=== PATIENT | male | born 1985 | race African-American/Black ===

== ENCOUNTER 2017-10-04 18:04 | Inpatient (IN) ==
[2017-10-04 18:34] LABS: Basophils # 0.1 10*3/uL (0.0-0.2); Basophils % 0.6 % (0.0-0.8); Eosinophils # 0.2 10*3/uL (0.0-0.87); Eosinophils % 1.6 % (0.00-10.9); Hematocrit 32.4 VOL% (42.0-52.0); Hemoglobin 10.6 GM/DL (14.0-18.0); Immature Granulocytes % 0.4 %; Immature Granulocytes Absolute 0.04 #; Lymphocytes # 0.8 10*3/uL (1.4-4.0); Lymphocytes % 8.5 % (21.2-54.2); Mean Corpuscular HGB Conc 32.7 GM/DL (32-36); Mean Corpuscular Hemoglobin 32 PG (27-34); Mean Corpuscular Volume 98.5 FL (87-102); Mean Platelet Volume 11.7 FL (9.6-12.0); Monocytes # 0.7 10*3/uL (0.11-0.8); Monocytes % 7.4 % (1.7-12.7); Neutrophils # 7.8 10*3/uL (1.4-7.4); Neutrophils % 81.5 % (38.7-73.9); Platelet Count 195 T/CUMM (130-400); Red Blood Count 3.29 MC/CUMM (3.8-5.5); Red Cell Distribution Width 13.6 % (9.3-17.3); White Blood Count 9.6 T/CUMM (4-12)
[2017-10-04] MEDS ORDERED: FUROSEMIDE 40 MG/4 ML VIAL IV STA (18:46)
[2017-10-04] MEDS ORDERED: MORPHINE 2 MG/1 ML SYRINGE IV STA ×2 (18:46→20:52)
[2017-10-04] MEDS ORDERED: hydrALAZINE 20 MG/1 ML VIAL IV STA ×2 (18:47→20:07)
[2017-10-04 18:57] LABS: Alanine Aminotransferase 29 U/L (16-61); Albumin 3.6 G/DL (3.4-5.0); Alkaline Phosphatase 141 U/L (45-117); Aspartate Amino Transferase 41 U/L (0-37); Blood Urea Nitrogen 44 MG/DL (7-18); Calcium 7.9 MG/DL (8.5-10.1); Glucose 400 MG/DL (74-106); Osmolality,Calculated 287.8 MOS/KG (273-304); Potassium 4.4 MMOL/L (3.5-5.1); Sodium 130 MMOL/L (136-145); Total Protein 8.5 G/DL (6.4-8.3); Troponin I Only 0.021 NG/ML (0.00-0.045)
[2017-10-04 18:58] LABS: Lactic Acid 2.4 MMOL/L (0.4-2.0)
[2017-10-04] MEDS ORDERED: FUROSEMIDE 40 MG/4 ML VIAL ONE (19:04)
[2017-10-04] MEDS ORDERED: hydrALAZINE 20 MG/1 ML VIAL ONE ×2 (19:04→20:05)
[2017-10-04] MEDS ORDERED: MORPHINE 2 MG/1 ML SYRINGE ONE ×2 (19:04→20:53)
[2017-10-04] MEDS ORDERED: LORazepam 2 MG/1 ML VIAL ONE (19:25)
[2017-10-04] MEDS ORDERED: LABETALOL 20 MG/4 ML SYRINGE IV STA (20:51)
[2017-10-04] MEDS ORDERED: LABETALOL 20 MG/4 ML SYRINGE IV ONE (20:53)
[2017-10-04] MEDS ORDERED: ONDANSETRON 4 MG/2 ML VIAL IV PRN (21:12)
[2017-10-04] MEDS ORDERED: GLUCAGON 1 MG VIAL IM PRN (21:22)
[2017-10-04] MEDS ORDERED: DEXTROSE 50% 25 GM/50 ML VIAL IV PRN (21:22)
[2017-10-04] MEDS ORDERED: niCARdipine 25 MG/10 ML VIAL IV ONE (21:32)
[2017-10-04] MEDS: niCARdipine INJ 25 MG in SODIUM CHLORIDE 0.9% 240 ML IV SCH (21:55)
[2017-10-04] MEDS ORDERED: LACTULOSE 20 GM/30 ML UDCUP PO PRN (22:07)
[2017-10-04] MEDS ORDERED: LORazepam 2 MG/1 ML VIAL IV ONE (22:22)
[2017-10-04] MEDS ORDERED: INSULIN LISPRO 100 UNIT/ML SUBCUT ONE (22:23)
[2017-10-04] MEDS ORDERED: amLODIPine 5 MG TABLET PO SCH (22:30)
[2017-10-04] MEDS: CARVEDILOL 25 MG TABLET PO SCH (22:36)
[2017-10-04] MEDS: DIVALPROEX 250 MG TABLET PO SCH (22:36)
[2017-10-04] MEDS: MINOXIDIL 10 MG TABLET PO SCH (22:36)
[2017-10-05] MEDS: MORPHINE 2 MG/1 ML SYRINGE IV PRN ×4 (00:36→22:35)
[2017-10-05] MEDS: niCARdipine INJ 25 MG in SODIUM CHLORIDE 0.9% 240 ML IV SCH (02:31)
[2017-10-05 03:07] LABS: Basophils # 0.1 10*3/uL (0.0-0.2); Basophils % 0.4 % (0.0-0.8); Eosinophils % 0.3 % (0.00-10.9); Hematocrit 31.4 VOL% (42.0-52.0); Hemoglobin 10.2 GM/DL (14.0-18.0); Immature Granulocytes % 0.6 %; Immature Granulocytes Absolute 0.07 #; Lymphocytes # 0.6 10*3/uL (1.4-4.0); Mean Corpuscular HGB Conc 32.5 GM/DL (32-36); Mean Corpuscular Hemoglobin 32 PG (27-34); Mean Corpuscular Volume 98.7 FL (87-102); Mean Platelet Volume 11.5 FL (9.6-12.0); Monocytes # 0.9 10*3/uL (0.11-0.8); Monocytes % 6.8 % (1.7-12.7); Neutrophils # 10.9 10*3/uL (1.4-7.4); Neutrophils % 86.9 % (38.7-73.9); Platelet Count 212 T/CUMM (130-400); Red Blood Count 3.18 MC/CUMM (3.8-5.5); Red Cell Distribution Width 13.5 % (9.3-17.3); White Blood Count 12.6 T/CUMM (4-12)
[2017-10-05 05:42] LABS: Calcium 7.3 MG/DL (8.5-10.1); Osmolality,Calculated 287.2 MOS/KG (273-304); Potassium 3.9 MMOL/L (3.5-5.1); Risk Ratio 3.22; VLDL CHOLESTEROL 23.6 MG/DL
[2017-10-05] MEDS: INSULIN LISPRO 100 UNIT/ML SUBCUT SCH ×4 (08:15→21:00)
[2017-10-05] MEDS: PANTOPRAZOLE 40 MG TABLET PO SCH (08:16)
[2017-10-05] MEDS: CARVEDILOL 25 MG TABLET PO SCH (08:16)
[2017-10-05] MEDS: SEVELAMER CARBONATE 800 MG TABLET PO SCH ×3 (08:16→17:32)
[2017-10-05] MEDS: MULTIVITAMIN (BEROCCA) TABLET PO SCH (08:16)
[2017-10-05] MEDS: ASCORBIC ACID 500 MG TABLET PO SCH (08:16)
[2017-10-05] MEDS: INSULIN REGULAR 100 UNIT/ML SUBCUT SCH (08:16)
[2017-10-05] MEDS: DIVALPROEX 250 MG TABLET PO SCH ×2 (08:18→21:21)
[2017-10-05] MEDS: hydrOXYzine HCL 10 MG TABLET PO SCH ×3 (08:19→21:21)
[2017-10-05] MEDS: MINOXIDIL 10 MG TABLET PO SCH ×2 (08:36→21:22)
[2017-10-05] MEDS ORDERED: RENAL PO SCH (09:00)
[2017-10-05] MEDS ORDERED: ZINC PO SCH (09:00)
[2017-10-05] MEDS: POLYETHYLENE GLYCOL POWDER 17 GM PACK PO SCH ×2 (16:04→21:22)
[2017-10-05] MEDS: DOCUSATE SODIUM 100 MG CAPSULE PO SCH ×2 (16:04→21:21)
[2017-10-05] MEDS: CARVEDILOL 3.125 MG TABLET PO SCH ×2 (16:54→18:29)
[2017-10-05] MEDS: cefTRIAXone 2,000 MG in SYRINGE 1 EACH IV SCH (17:33)
[2017-10-05] MEDS ORDERED: OLMESARTAN 20 MG TABLET PO SCH (21:00)
[2017-10-05] MEDS: cloNIDine 0.1 MG TABLET PO SCH (21:21)
[2017-10-05] MEDS: INSULIN GLARGINE 100 UNIT/ML SUBCUT SCH (22:02)
[2017-10-06] MEDS: MORPHINE 2 MG/1 ML SYRINGE IV PRN ×3 (05:57→21:45)
[2017-10-06] MEDS: INSULIN REGULAR 100 UNIT/ML SUBCUT SCH (08:59)
[2017-10-06] MEDS: DIVALPROEX 250 MG TABLET PO SCH ×2 (09:00→21:45)
[2017-10-06] MEDS: SEVELAMER CARBONATE 800 MG TABLET PO SCH ×3 (09:00→17:05)
[2017-10-06] MEDS: POLYETHYLENE GLYCOL POWDER 17 GM PACK PO SCH ×2 (09:00→21:51)
[2017-10-06] MEDS: INSULIN LISPRO 100 UNIT/ML SUBCUT SCH ×4 (09:00→21:44)
[2017-10-06] MEDS: ASCORBIC ACID 500 MG TABLET PO SCH (09:01)
[2017-10-06] MEDS: cloNIDine 0.1 MG TABLET PO SCH (09:01)
[2017-10-06] MEDS: DOCUSATE SODIUM 100 MG CAPSULE PO SCH ×3 (09:01→21:51)
[2017-10-06] MEDS: MULTIVITAMIN (BEROCCA) TABLET PO SCH (09:01)
[2017-10-06] MEDS: CARVEDILOL 3.125 MG TABLET PO SCH ×2 (09:01→17:05)
[2017-10-06] MEDS: PANTOPRAZOLE 40 MG TABLET PO SCH (09:01)
[2017-10-06] MEDS: MINOXIDIL 10 MG TABLET PO SCH (09:01)
[2017-10-06] MEDS: hydrOXYzine HCL 10 MG TABLET PO SCH ×3 (09:01→21:45)
[2017-10-06 13:02] LABS: Cancer Antigen 19-9 156.7 U/ML (0-37); Carcinoembryonic Antigen 3.3 NG/ML (0.0-5.0); Prostate Specific Antigen Diag 0.4 NG/ML (0-4)
[2017-10-06] MEDS: cefTRIAXone 2,000 MG in SYRINGE 1 EACH IV SCH (17:05)
[2017-10-06] MEDS: INSULIN GLARGINE 100 UNIT/ML SUBCUT SCH (21:44)
[2017-10-07] MEDS: cloNIDine 0.1 MG TABLET PO SCH ×2 (01:02→08:26)
[2017-10-07] MEDS: MINOXIDIL 10 MG TABLET PO SCH ×2 (01:03→08:27)
[2017-10-07] MEDS: MORPHINE 2 MG/1 ML SYRINGE IV PRN ×4 (04:14→19:20)
[2017-10-07] MEDS: CARVEDILOL 3.125 MG TABLET PO SCH ×2 (08:26→17:51)
[2017-10-07] MEDS: INSULIN LISPRO 100 UNIT/ML SUBCUT SCH ×3 (08:26→16:07)
[2017-10-07] MEDS: POLYETHYLENE GLYCOL POWDER 17 GM PACK PO SCH (08:34)
[2017-10-07] MEDS: MULTIVITAMIN (BEROCCA) TABLET PO SCH (08:35)
[2017-10-07] MEDS: DOCUSATE SODIUM 100 MG CAPSULE PO SCH (08:35)
[2017-10-07] MEDS: hydrOXYzine HCL 10 MG TABLET PO SCH ×2 (08:35→15:10)
[2017-10-07] MEDS: INSULIN REGULAR 100 UNIT/ML SUBCUT SCH (08:35)
[2017-10-07] MEDS: PANTOPRAZOLE 40 MG TABLET PO SCH (08:35)
[2017-10-07] MEDS: ASCORBIC ACID 500 MG TABLET PO SCH (08:35)
[2017-10-07] MEDS: DIVALPROEX 250 MG TABLET PO SCH (08:35)
[2017-10-07] MEDS: SEVELAMER CARBONATE 800 MG TABLET PO SCH ×3 (08:35→17:51)
[2017-10-07] MEDS: cefTRIAXone 2,000 MG in SYRINGE 1 EACH IV SCH (17:51)
[2017-10-07 21:27] VITALS: BP 121/80
== END 2017-10-07 20:48 | disposition home or self-care (01) | DRG 194 ==
LOC: N.ED 18:04 → N.EDINP 21:09 → SUATTDRO 21:09 → N.CC 21:30 → N.5E 10-05 16:27
PROVIDERS: ADMIT Hospitalist

== ENCOUNTER 2017-10-19 04:07 | Observation (INO) ==
[2017-10-19] MEDS ORDERED: MORPHINE 2 MG/1 ML SYRINGE IV STA (04:52)
[2017-10-19] MEDS ORDERED: ONDANSETRON 4 MG/2 ML VIAL IV STA (04:52)
[2017-10-19] MEDS ORDERED: ONDANSETRON 4 MG/2 ML VIAL ONE (05:02)
[2017-10-19] MEDS ORDERED: MORPHINE 10 MG/1 ML VIAL ONE (05:03)
[2017-10-19 05:05] LABS: Basophils % 0.5 % (0.0-0.8); Eosinophils # 0.4 10*3/uL (0.0-0.87); Eosinophils % 4.6 % (0.00-10.9); Hematocrit 30.2 VOL% (42.0-52.0); Immature Granulocytes % 0.3 %; Immature Granulocytes Absolute 0.02 #; Lymphocytes # 1.1 10*3/uL (1.4-4.0); Lymphocytes % 14.7 % (21.2-54.2); Mean Corpuscular HGB Conc 33.1 GM/DL (32-36); Mean Corpuscular Hemoglobin 33 PG (27-34); Mean Corpuscular Volume 98.7 FL (87-102); Mean Platelet Volume 11.7 FL (9.6-12.0); Monocytes # 0.9 10*3/uL (0.11-0.8); Monocytes % 11.6 % (1.7-12.7); Neutrophils # 5.2 10*3/uL (1.4-7.4); Neutrophils % 68.3 % (38.7-73.9); Platelet Count 193 T/CUMM (130-400); Red Blood Count 3.06 MC/CUMM (3.8-5.5); Red Cell Distribution Width 14.6 % (9.3-17.3); White Blood Count 7.6 T/CUMM (4-12)
[2017-10-19 05:11] LABS: INR 1.1; PT Patient Result 11.2 SECS; Partial Thromboplastin Time 30.7 SECS (0-40)
[2017-10-19 05:34] LABS: Alanine Aminotransferase 26 U/L (16-61); Albumin 3.3 G/DL (3.4-5.0); Alkaline Phosphatase 108 U/L (45-117); Aspartate Amino Transferase 33 U/L (0-37); Blood Urea Nitrogen 65 MG/DL (7-18); Calcium 7.1 MG/DL (8.5-10.1); Glucose 99 MG/DL (74-106); Potassium 4.5 MMOL/L (3.5-5.1); Sodium 136 MMOL/L (136-145); Total Protein 7.4 G/DL (6.4-8.3); Troponin I Only 0.019 NG/ML (0.00-0.045)
[2017-10-19] MEDS ORDERED: METOPROLOL TARTRATE 5 MG/5 ML VIAL IV STA (05:41)
[2017-10-19] MEDS ORDERED: METOPROLOL TARTRATE 5 MG/5 ML VIAL IV ONE (05:44)
[2017-10-19] MEDS ORDERED: cloNIDine 0.1 MG TABLET PO STA (06:01)
[2017-10-19] MEDS ORDERED: cloNIDine 0.1 MG TABLET ONE (06:02)
[2017-10-19] MEDS ORDERED: ONDANSETRON 4 MG/2 ML VIAL IV PRN (06:06)
[2017-10-19] MEDS ORDERED: INSULIN REGULAR 100 UNIT/ML SUBCUT ONE (06:06)
[2017-10-19 08:01] LABS: Risk Ratio 2.45; VLDL CHOLESTEROL 9.8 MG/DL
[2017-10-19] MEDS: MORPHINE 2 MG/1 ML SYRINGE IV PRN ×2 (08:15→08:41)
[2017-10-19] MEDS: CARVEDILOL 25 MG TABLET PO SCH ×2 (08:42→20:29)
[2017-10-19] MEDS: VALSARTAN 160 MG TABLET PO SCH (08:43)
[2017-10-19] MEDS ORDERED: ZINC PO SCH (09:00)
[2017-10-19] MEDS ORDERED: RENAL PO SCH (09:00)
[2017-10-19] MEDS: MINOXIDIL 10 MG TABLET PO SCH ×2 (09:30→20:28)
[2017-10-19] MEDS: MULTIVITAMIN (BEROCCA) TABLET PO SCH (09:30)
[2017-10-19] MEDS: hydrALAZINE 20 MG/1 ML VIAL IV PRN ×2 (10:10→14:59)
[2017-10-19] MEDS: HEPARIN 5,000 UNIT/1 ML VIAL SUBCUT SCH ×3 (12:04→23:05)
[2017-10-19] MEDS: INSULIN REGULAR 100 UNIT/ML SUBCUT SCH ×3 (13:44→20:36)
[2017-10-19] MEDS: NITROGLYCERIN 2% OINT 1 INCH/GM PACK TOP SCH ×3 (13:45→23:07)
[2017-10-19] MEDS: SEVELAMER CARBONATE 800 MG TABLET PO SCH ×2 (14:55→20:28)
[2017-10-19] MEDS: DIVALPROEX 250 MG TABLET PO SCH ×2 (14:56→20:27)
[2017-10-19] MEDS: ASPIRIN EC 81 MG TABLET PO SCH (14:56)
[2017-10-19] MEDS ORDERED: amLODIPine 10 MG TABLET PO SCH (21:00)
[2017-10-20] MEDS ORDERED: diphenhydrAMINE CAP 25 MG CAPSULE PO PRN (00:28)
[2017-10-20] MEDS: NITROGLYCERIN 2% OINT 1 INCH/GM PACK TOP SCH ×3 (03:59→13:56)
[2017-10-20 05:26] LABS: Basophils # 0.1 10*3/uL (0.0-0.2); Basophils % 0.8 % (0.0-0.8); Eosinophils # 0.2 10*3/uL (0.0-0.87); Eosinophils % 3.3 % (0.00-10.9); Hematocrit 32.6 VOL% (42.0-52.0); Hemoglobin 10.5 GM/DL (14.0-18.0); Immature Granulocytes % 0.3 %; Immature Granulocytes Absolute 0.02 #; Lymphocytes # 0.9 10*3/uL (1.4-4.0); Lymphocytes % 13.9 % (21.2-54.2); Mean Corpuscular HGB Conc 32.2 GM/DL (32-36); Mean Corpuscular Hemoglobin 32 PG (27-34); Mean Corpuscular Volume 99.7 FL (87-102); Mean Platelet Volume 11.2 FL (9.6-12.0); Monocytes # 0.9 10*3/uL (0.11-0.8); Monocytes % 13.4 % (1.7-12.7); Neutrophils # 4.5 10*3/uL (1.4-7.4); Neutrophils % 68.3 % (38.7-73.9); Platelet Count 219 T/CUMM (130-400); Red Blood Count 3.27 MC/CUMM (3.8-5.5); Red Cell Distribution Width 14.8 % (9.3-17.3); White Blood Count 6.6 T/CUMM (4-12)
[2017-10-20 06:07] LABS: Calcium 7.5 MG/DL (8.5-10.1); Osmolality,Calculated 291.1 MOS/KG (273-304); Potassium 5.4 MMOL/L (3.5-5.1)
[2017-10-20] MEDS: HEPARIN 5,000 UNIT/1 ML VIAL SUBCUT SCH ×3 (06:27→21:29)
[2017-10-20] MEDS: INSULIN REGULAR 100 UNIT/ML SUBCUT SCH ×4 (07:55→21:22)
[2017-10-20] MEDS: VALSARTAN 160 MG TABLET PO SCH (08:00)
[2017-10-20] MEDS: DIVALPROEX 250 MG TABLET PO SCH ×2 (08:01→21:21)
[2017-10-20] MEDS: MULTIVITAMIN (BEROCCA) TABLET PO SCH (08:01)
[2017-10-20] MEDS: SEVELAMER CARBONATE 800 MG TABLET PO SCH ×2 (08:01→21:21)
[2017-10-20] MEDS: MINOXIDIL 10 MG TABLET PO SCH ×2 (08:01→21:22)
[2017-10-20] MEDS: CARVEDILOL 25 MG TABLET PO SCH ×2 (08:02→21:21)
[2017-10-20] MEDS: ASPIRIN EC 81 MG TABLET PO SCH (08:02)
[2017-10-20] MEDS: INSULIN GLARGINE 100 UNIT/ML SUBCUT SCH ×2 (14:05→21:20)
[2017-10-21] MEDS: MORPHINE 2 MG/1 ML SYRINGE IV PRN (01:25)
[2017-10-21 05:15] LABS: Basophils # 0.1 10*3/uL (0.0-0.2); Basophils % 0.9 % (0.0-0.8); Eosinophils # 0.2 10*3/uL (0.0-0.87); Eosinophils % 3.5 % (0.00-10.9); Hematocrit 33.2 VOL% (42.0-52.0); Hemoglobin 10.6 GM/DL (14.0-18.0); Immature Granulocytes % 0.4 %; Immature Granulocytes Absolute 0.02 #; Lymphocytes % 17.9 % (21.2-54.2); Mean Corpuscular HGB Conc 31.9 GM/DL (32-36); Mean Corpuscular Hemoglobin 32 PG (27-34); Mean Corpuscular Volume 99.7 FL (87-102); Mean Platelet Volume 11.4 FL (9.6-12.0); Monocytes # 0.9 10*3/uL (0.11-0.8); Monocytes % 16.4 % (1.7-12.7); Neutrophils # 3.3 10*3/uL (1.4-7.4); Neutrophils % 60.9 % (38.7-73.9); Platelet Count 249 T/CUMM (130-400); Red Blood Count 3.33 MC/CUMM (3.8-5.5); Red Cell Distribution Width 15.1 % (9.3-17.3); White Blood Count 5.4 T/CUMM (4-12)
[2017-10-21 05:43] LABS: Eosinophils 1 % (0-10); Giant Platelets Few; Hypochromasia 1+; Lymphocytes 15 % (20-55); Platelet Estimate Adequate; Segmented Neutrophils 72 % (50-85); Total Cells Counted 100
[2017-10-21 05:52] LABS: Calcium 7.8 MG/DL (8.5-10.1); Osmolality,Calculated 285.5 MOS/KG (273-304); Potassium 4.4 MMOL/L (3.5-5.1)
[2017-10-21] MEDS: HEPARIN 5,000 UNIT/1 ML VIAL SUBCUT SCH ×2 (06:09→14:45)
[2017-10-21] MEDS ORDERED: SEVELAMER CARBONATE 800 MG TABLET PO SCH (07:00)
[2017-10-21] MEDS: INSULIN REGULAR 100 UNIT/ML SUBCUT SCH ×2 (08:13→13:18)
[2017-10-21] MEDS: SEVELAMER CARBONATE 800 MG TABLET PO SCH ×2 (13:13→13:14)
[2017-10-21] MEDS: DIVALPROEX 250 MG TABLET PO SCH (13:14)
[2017-10-21] MEDS: VALSARTAN 160 MG TABLET PO SCH (13:15)
[2017-10-21] MEDS: MINOXIDIL 10 MG TABLET PO SCH (13:15)
[2017-10-21] MEDS: ASPIRIN EC 81 MG TABLET PO SCH (13:16)
[2017-10-21] MEDS: CARVEDILOL 25 MG TABLET PO SCH (13:16)
[2017-10-21] MEDS: INSULIN GLARGINE 100 UNIT/ML SUBCUT SCH (13:16)
[2017-10-21] MEDS: MULTIVITAMIN (BEROCCA) TABLET PO SCH (13:16)
[2017-10-21 13:23] VITALS: BP 126/75
== END 2017-10-21 14:58 | disposition home or self-care (01) ==
LOC: N.ED 04:07 → N.EDINP 04:07 → N.TELEN 06:24

== ENCOUNTER 2017-10-24 02:00 | Observation (INO) ==
[2017-10-24 02:56] LABS: Basophils # 0.1 10*3/uL (0.0-0.2); Basophils % 0.9 % (0.0-0.8); Eosinophils # 0.3 10*3/uL (0.0-0.87); Eosinophils % 4.5 % (0.00-10.9); Hematocrit 29.1 VOL% (42.0-52.0); Hemoglobin 9.7 GM/DL (14.0-18.0); Immature Granulocytes % 0.4 %; Immature Granulocytes Absolute 0.02 #; Lymphocytes % 18.1 % (21.2-54.2); Mean Corpuscular HGB Conc 33.3 GM/DL (32-36); Mean Corpuscular Hemoglobin 33 PG (27-34); Mean Corpuscular Volume 99.3 FL (87-102); Mean Platelet Volume 10.9 FL (9.6-12.0); Monocytes # 0.9 10*3/uL (0.11-0.8); Monocytes % 15.9 % (1.7-12.7); Neutrophils # 3.3 10*3/uL (1.4-7.4); Neutrophils % 60.2 % (38.7-73.9); Platelet Count 243 T/CUMM (130-400); Red Blood Count 2.93 MC/CUMM (3.8-5.5); Red Cell Distribution Width 15.4 % (9.3-17.3); White Blood Count 5.5 T/CUMM (4-12)
[2017-10-24 03:14] LABS: Alanine Aminotransferase 32 U/L (16-61); Albumin 3.2 G/DL (3.4-5.0); Alkaline Phosphatase 119 U/L (45-117); Aspartate Amino Transferase 36 U/L (0-37); Bilirubin,Total < 0.39 MG/DL (0.2-1.0); Blood Urea Nitrogen 33 MG/DL (7-18); Calcium 7.2 MG/DL (8.5-10.1); Glucose 361 MG/DL (74-106); Potassium 4.4 MMOL/L (3.5-5.1); Sodium 136 MMOL/L (136-145); Total Protein 7.5 G/DL (6.4-8.3)
[2017-10-24 04:29] LABS: Eosinophils 1 % (0-10); Lymphocytes 16 % (20-55); Platelet Estimate Normal; Segmented Neutrophils 74 % (50-85); Total Cells Counted 100
[2017-10-24] MEDS ORDERED: ONDANSETRON 4 MG/2 ML VIAL IV PRN (04:44)
[2017-10-24] MEDS ORDERED: DEXTROSE 50% 25 GM/50 ML VIAL IV PRN (04:54)
[2017-10-24] MEDS ORDERED: GLUCAGON 1 MG VIAL IM PRN (04:54)
[2017-10-24] MEDS ORDERED: SEVELAMER CARBONATE 800 MG TABLET PO SCH (06:30)
[2017-10-24] MEDS: INSULIN LISPRO 100 UNIT/ML SUBCUT SCH ×4 (08:11→20:52)
[2017-10-24] MEDS: ACETAMINOPHEN 325 MG TABLET PO PRN ×2 (08:12→21:46)
[2017-10-24] MEDS: DIVALPROEX 250 MG TABLET PO SCH ×2 (08:12→20:37)
[2017-10-24] MEDS: CARVEDILOL 25 MG TABLET PO SCH ×2 (08:14→20:41)
[2017-10-24] MEDS: PANTOPRAZOLE 40 MG TABLET PO SCH (08:14)
[2017-10-24] MEDS ORDERED: MINOXIDIL PO SCH (09:00)
[2017-10-24] MEDS: IBUPROFEN 600 MG TABLET PO SCH ×2 (13:24→20:37)
[2017-10-24] MEDS ORDERED: cloNIDine 0.1 MG TABLET PO PRN (14:22)
[2017-10-24] MEDS: hydrALAZINE 25 MG TABLET PO SCH ×2 (16:07→20:41)
[2017-10-24] MEDS ORDERED: INSULIN GLARGINE 100 UNIT/ML SUBCUT SCH (21:00)
[2017-10-25] MEDS: ACETAMINOPHEN 325 MG TABLET PO PRN (02:16)
[2017-10-25 04:11] LABS: Basophils # 0.1 10*3/uL (0.0-0.2); Basophils % 0.9 % (0.0-0.8); Eosinophils # 0.4 10*3/uL (0.0-0.87); Eosinophils % 6.1 % (0.00-10.9); Hemoglobin 9.8 GM/DL (14.0-18.0); Immature Granulocytes % 0.2 %; Immature Granulocytes Absolute 0.01 #; Lymphocytes # 1.6 10*3/uL (1.4-4.0); Lymphocytes % 28.5 % (21.2-54.2); Mean Corpuscular HGB Conc 32.7 GM/DL (32-36); Mean Corpuscular Hemoglobin 33 PG (27-34); Mean Corpuscular Volume 100.3 FL (87-102); Mean Platelet Volume 11.1 FL (9.6-12.0); Monocytes # 0.8 10*3/uL (0.11-0.8); Monocytes % 13.7 % (1.7-12.7); Neutrophils # 2.9 10*3/uL (1.4-7.4); Neutrophils % 50.6 % (38.7-73.9); Platelet Count 231 T/CUMM (130-400); Red Blood Count 2.99 MC/CUMM (3.8-5.5); Red Cell Distribution Width 15.5 % (9.3-17.3); White Blood Count 5.8 T/CUMM (4-12)
[2017-10-25 04:31] LABS: Osmolality,Calculated 279.5 MOS/KG (273-304); Potassium 5.2 MMOL/L (3.5-5.1)
[2017-10-25] MEDS: IBUPROFEN 600 MG TABLET PO SCH (05:41)
[2017-10-25 06:31] LABS: Potassium 5.3 MMOL/L (3.5-5.1); Troponin I Only 0.02 NG/ML (0.00-0.045)
[2017-10-25] MEDS: DIVALPROEX 250 MG TABLET PO SCH (09:23)
[2017-10-25] MEDS: CARVEDILOL 25 MG TABLET PO SCH (09:24)
[2017-10-25] MEDS: PANTOPRAZOLE 40 MG TABLET PO SCH (09:24)
[2017-10-25] MEDS: hydrALAZINE 25 MG TABLET PO SCH (09:25)
[2017-10-25] MEDS: INSULIN LISPRO 100 UNIT/ML SUBCUT SCH ×2 (09:26→11:49)
[2017-10-25 11:35] VITALS: BP 111/75
[2017-10-25] MEDS ORDERED: IBUPROFEN 400 MG TABLET PO SCH (21:00)
[2017-10-27] MEDS ORDERED: IBUPROFEN 200 MG TABLET PO SCH (07:00)
== END 2017-10-25 13:20 | disposition home or self-care (01) ==
LOC: EDUNIT# → EDBD → N.ED 02:00 → N.EDINP 02:00 → N.2E 05:08
PROVIDERS: ADMIT Hospitalist; ATTEND Hospitalist

== ENCOUNTER 2018-01-31 16:54 | Inpatient (IN) ==
[2018-01-31] MEDS ORDERED: hydrALAZINE 20 MG/1 ML VIAL ONE (17:20)
[2018-01-31] MEDS ORDERED: hydrALAZINE 20 MG/1 ML VIAL IV STA ×2 (17:21→17:39)
[2018-01-31] MEDS ORDERED: LABETALOL 20 MG/4 ML SYRINGE IV STA ×4 (17:39→19:30)
[2018-01-31] MEDS ORDERED: diphenhydrAMINE 50 MG/1 ML VIAL IV STA (17:40)
[2018-01-31] MEDS ORDERED: METOCLOPRAMIDE 10 MG/2 ML VIAL IV STA (17:40)
[2018-01-31] MEDS ORDERED: MORPHINE 4 MG/1 ML VIAL IV STA ×2 (18:12→18:56)
[2018-01-31] MEDS ORDERED: LABETALOL 100 MG/20 ML VIAL IV ONE ×2 (18:16→19:42)
[2018-01-31 20:08] LABS: Basophils # 0.1 10*3/uL (0.0-0.2); Basophils % 0.6 % (0.0-0.8); Eosinophils # 0.1 10*3/uL (0.0-0.87); Eosinophils % 0.8 % (0.00-10.9); Hematocrit 35.1 VOL% (42.0-52.0); Hemoglobin 11.6 GM/DL (14.0-18.0); Immature Granulocytes % 0.4 %; Immature Granulocytes Absolute 0.03 #; Lymphocytes # 0.9 10*3/uL (1.4-4.0); Lymphocytes % 10.2 % (21.2-54.2); Mean Corpuscular Hemoglobin 30 PG (27-34); Mean Corpuscular Volume 90.2 FL (87-102); Monocytes # 0.5 10*3/uL (0.11-0.8); Monocytes % 5.5 % (1.7-12.7); Neutrophils % 82.5 % (38.7-73.9); Platelet Count 168 T/CUMM (130-400); Red Blood Count 3.89 MC/CUMM (3.8-5.5); Red Cell Distribution Width 13.8 % (9.3-17.3); White Blood Count 8.5 T/CUMM (4-12)
[2018-01-31 20:27] LABS: Alanine Aminotransferase 20 U/L (16-61); Albumin 4.2 G/DL (3.4-5.0); Alkaline Phosphatase 123 U/L (45-117); Aspartate Amino Transferase 17 U/L (0-37); Bilirubin,Total < 0.39 MG/DL (0.2-1.0); Blood Urea Nitrogen 40 MG/DL (7-18); Calcium 8.8 MG/DL (8.5-10.1); Glucose 372 MG/DL (74-106); Osmolality,Calculated 282.9 MOS/KG (273-304); Sodium 129 MMOL/L (136-145); Total Protein 8.1 G/DL (6.4-8.3)
[2018-01-31] MEDS ORDERED: niCARdipine 25 MG/10 ML VIAL IV ONE (20:33)
[2018-01-31] MEDS: niCARdipine INJ 25 MG in SODIUM CHLORIDE 0.9% 240 ML IV PRN (20:42)
[2018-01-31] MEDS ORDERED: ONDANSETRON 4 MG/2 ML VIAL ONE (23:21)
[2018-02-01] MEDS ORDERED: DEXTROSE 50% 25 GM/50 ML VIAL IV PRN (00:28)
[2018-02-01] MEDS ORDERED: ACETAMINOPHEN 325 MG TABLET PO PRN (00:28)
[2018-02-01] MEDS ORDERED: ALBUTEROL/IPRATROPIUM 3 ML NEB RESP TX PRN ×2 (00:28→10:22)
[2018-02-01] MEDS ORDERED: GLUCAGON 1 MG VIAL IM PRN (00:28)
[2018-02-01] MEDS ORDERED: NICOTINE 14 MG/24 HR PATCH TRANSDERM PRN (00:28)
[2018-02-01] MEDS ORDERED: ONDANSETRON 4 MG/2 ML VIAL IV PRN (00:28)
[2018-02-01] MEDS ORDERED: PROMETHAZINE 25 MG TABLET PO PRN (00:28)
[2018-02-01] MEDS: CARVEDILOL 25 MG TABLET PO SCH ×3 (01:10→21:43)
[2018-02-01] MEDS: cefTRIAXone 1,000 MG in SYRINGE 1 EACH IV SCH ×2 (01:21→16:23)
[2018-02-01] MEDS ORDERED: MORPHINE 4 MG/1 ML VIAL IV ONE (01:30)
[2018-02-01] MEDS: ALBUTEROL/IPRATROPIUM 3 ML NEB RESP TX SCH ×4 (01:43→18:58)
[2018-02-01] MEDS: MORPHINE 4 MG/1 ML VIAL IV PRN ×3 (01:53→21:49)
[2018-02-01] MEDS: AZITHROMYCIN INJ 500 MG in SODIUM CHLORIDE 0.9% 250 ML IV SCH (05:02)
[2018-02-01] MEDS: niCARdipine INJ 25 MG in SODIUM CHLORIDE 0.9% 240 ML IV PRN ×3 (08:02→23:22)
[2018-02-01] MEDS: INSULIN REGULAR 100 UNIT/ML SUBCUT SCH ×5 (08:10→21:43)
[2018-02-01] MEDS ORDERED: ENOXAPARIN 30 MG/0.3 ML SYRINGE SUBCUT SCH (09:00)
[2018-02-01] MEDS ORDERED: ZINC PO SCH (09:00)
[2018-02-01] MEDS ORDERED: RENAL PO SCH (09:00)
[2018-02-01] MEDS ORDERED: SEVELAMER CARBONATE 800 MG TABLET PO SCH (15:00)
[2018-02-01] MEDS: PANTOPRAZOLE 40 MG TABLET PO SCH (16:14)
[2018-02-01] MEDS: SEVELAMER CARBONATE 800 MG TABLET PO SCH ×2 (16:14→16:16)
[2018-02-01] MEDS: VALSARTAN 160 MG TABLET PO SCH (16:16)
[2018-02-01] MEDS: amLODIPine 10 MG TABLET PO SCH (16:17)
[2018-02-01] MEDS: DOCUSATE SODIUM 100 MG CAPSULE PO SCH ×2 (16:20→21:43)
[2018-02-01] MEDS: MULTIVITAMIN (BEROCCA) TABLET PO SCH (16:21)
[2018-02-01] MEDS: INSULIN GLARGINE 100 UNIT/ML SUBCUT SCH (21:43)
[2018-02-02] MEDS: ALBUTEROL/IPRATROPIUM 3 ML NEB RESP TX SCH ×4 (00:32→19:26)
[2018-02-02] MEDS: cefTRIAXone 1,000 MG in SYRINGE 1 EACH IV SCH ×2 (01:44→15:00)
[2018-02-02] MEDS: AZITHROMYCIN INJ 500 MG in SODIUM CHLORIDE 0.9% 250 ML IV SCH (01:44)
[2018-02-02] MEDS: MORPHINE 4 MG/1 ML VIAL IV PRN ×4 (02:55→22:10)
[2018-02-02] MEDS: VALSARTAN 160 MG TABLET PO SCH (10:20)
[2018-02-02] MEDS: SEVELAMER CARBONATE 800 MG TABLET PO SCH ×3 (10:21→19:22)
[2018-02-02] MEDS: amLODIPine 10 MG TABLET PO SCH (10:23)
[2018-02-02] MEDS: DOCUSATE SODIUM 100 MG CAPSULE PO SCH ×2 (10:24→20:13)
[2018-02-02] MEDS: CARVEDILOL 25 MG TABLET PO SCH ×2 (10:24→20:13)
[2018-02-02] MEDS: PANTOPRAZOLE 40 MG TABLET PO SCH (10:24)
[2018-02-02] MEDS: MULTIVITAMIN (BEROCCA) TABLET PO SCH (10:27)
[2018-02-02] MEDS: INSULIN REGULAR 100 UNIT/ML SUBCUT SCH ×5 (10:33→21:50)
[2018-02-02] MEDS: levETIRAcetam 500 MG TABLET PO SCH (20:14)
[2018-02-02] MEDS: INSULIN GLARGINE 100 UNIT/ML SUBCUT SCH (21:50)
[2018-02-03] MEDS: ALBUTEROL/IPRATROPIUM 3 ML NEB RESP TX SCH ×4 (00:59→21:02)
[2018-02-03] MEDS: cefTRIAXone 1,000 MG in SYRINGE 1 EACH IV SCH ×2 (02:15→13:15)
[2018-02-03] MEDS: AZITHROMYCIN INJ 500 MG in SODIUM CHLORIDE 0.9% 250 ML IV SCH (02:25)
[2018-02-03] MEDS ORDERED: DIAZEPAM 5 MG TABLET PO SCH (08:57)
[2018-02-03] MEDS: VALSARTAN 160 MG TABLET PO SCH (09:29)
[2018-02-03] MEDS: amLODIPine 10 MG TABLET PO SCH (09:29)
[2018-02-03] MEDS: DOCUSATE SODIUM 100 MG CAPSULE PO SCH ×2 (09:29→21:32)
[2018-02-03] MEDS: levETIRAcetam 500 MG TABLET PO SCH ×2 (09:30→21:32)
[2018-02-03] MEDS: CARVEDILOL 25 MG TABLET PO SCH ×2 (09:30→21:32)
[2018-02-03] MEDS: PANTOPRAZOLE 40 MG TABLET PO SCH (09:30)
[2018-02-03] MEDS: MULTIVITAMIN (BEROCCA) TABLET PO SCH (09:30)
[2018-02-03] MEDS: SEVELAMER CARBONATE 800 MG TABLET PO SCH ×3 (09:32→16:30)
[2018-02-03] MEDS: INSULIN REGULAR 100 UNIT/ML SUBCUT SCH ×5 (09:34→21:32)
[2018-02-03] MEDS: INSULIN GLARGINE 100 UNIT/ML SUBCUT SCH (22:00)
[2018-02-04] MEDS: MORPHINE 4 MG/1 ML VIAL IV PRN ×2 (00:16→09:16)
[2018-02-04] MEDS: ALBUTEROL/IPRATROPIUM 3 ML NEB RESP TX SCH ×3 (00:59→12:22)
[2018-02-04] MEDS: cefTRIAXone 1,000 MG in SYRINGE 1 EACH IV SCH ×2 (01:32→13:16)
[2018-02-04] MEDS: AZITHROMYCIN INJ 500 MG in SODIUM CHLORIDE 0.9% 250 ML IV SCH (02:29)
[2018-02-04] MEDS: INSULIN REGULAR 100 UNIT/ML SUBCUT SCH ×3 (09:17→12:46)
[2018-02-04] MEDS: amLODIPine 10 MG TABLET PO SCH (09:18)
[2018-02-04] MEDS: CARVEDILOL 25 MG TABLET PO SCH (09:18)
[2018-02-04] MEDS: MULTIVITAMIN (BEROCCA) TABLET PO SCH (09:18)
[2018-02-04] MEDS: VALSARTAN 160 MG TABLET PO SCH (09:18)
[2018-02-04] MEDS: DOCUSATE SODIUM 100 MG CAPSULE PO SCH (09:18)
[2018-02-04] MEDS: SEVELAMER CARBONATE 800 MG TABLET PO SCH ×2 (09:18→13:16)
[2018-02-04] MEDS: PANTOPRAZOLE 40 MG TABLET PO SCH (09:27)
[2018-02-04] MEDS: levETIRAcetam 500 MG TABLET PO SCH (09:32)
[2018-02-04 11:57] VITALS: BP 146/93
== END 2018-02-04 14:06 | disposition home or self-care (01) | DRG 44 ==
LOC: EDUNIT# → N.ED 16:54 → N.EDINP 20:37 → SUATTDRO 20:37 → N.TELES 22:55
PROVIDERS: ADMIT Family Medicine; ATTEND Internal Medicine Geriatric Medicine

== ENCOUNTER 2018-04-01 12:00 | Inpatient (IN) ==
[2018-04-01 13:30] LABS: Basophils # 0.1 10*3/uL (0.0-0.2); Basophils % 1.1 % (0.0-0.8); Eosinophils # 0.1 10*3/uL (0.0-0.87); Eosinophils % 2.1 % (0.00-10.9); Hematocrit 30.4 VOL% (42.0-52.0); Hemoglobin 9.9 GM/DL (14.0-18.0); Immature Granulocytes % 0.4 %; Immature Granulocytes Absolute 0.02 #; Lymphocytes # 1.1 10*3/uL (1.4-4.0); Mean Corpuscular HGB Conc 32.6 GM/DL (32-36); Mean Corpuscular Hemoglobin 30 PG (27-34); Mean Corpuscular Volume 92.4 FL (87-102); Mean Platelet Volume 11.2 FL (9.6-12.0); Monocytes # 0.4 10*3/uL (0.11-0.8); Monocytes % 8.3 % (1.7-12.7); Neutrophils % 64.1 % (38.7-73.9); Platelet Count 233 T/CUMM (130-400); Red Blood Count 3.29 MC/CUMM (3.8-5.5); Red Cell Distribution Width 14.9 % (9.3-17.3); White Blood Count 4.7 T/CUMM (4-12)
[2018-04-01 13:45] LABS: PT Patient Result 10.5 SECS; Partial Thromboplastin Time 32.9 SECS (0-40)
[2018-04-01 14:21] LABS: Albumin 3.6 G/DL (3.4-5.0); Bilirubin,Total 0.4 MG/DL (0.2-1.0); Calcium 8.7 MG/DL (8.5-10.1); Osmolality,Calculated 281.1 MOS/KG (273-304); Potassium 4.1 MMOL/L (3.5-5.1); Total Protein 7.6 G/DL (6.4-8.3)
[2018-04-01 19:04] LABS: Troponin I < 0.015 NG/ML (0.00-0.045)
[2018-04-01 23:35] LABS: Troponin I < 0.015 NG/ML (0.00-0.045)
[2018-04-02 04:25] LABS: Basophils % 0.5 % (0.0-0.8); Eosinophils # 0.1 10*3/uL (0.0-0.87); Eosinophils % 1.6 % (0.00-10.9); Hematocrit 28.1 VOL% (42.0-52.0); Hemoglobin 9.3 GM/DL (14.0-18.0); Immature Granulocytes % 0.2 %; Immature Granulocytes Absolute 0.01 #; Lymphocytes # 1.4 10*3/uL (1.4-4.0); Mean Corpuscular HGB Conc 33.1 GM/DL (32-36); Mean Corpuscular Hemoglobin 30 PG (27-34); Mean Corpuscular Volume 90.9 FL (87-102); Mean Platelet Volume 11.9 FL (9.6-12.0); Monocytes # 0.4 10*3/uL (0.11-0.8); Monocytes % 6.7 % (1.7-12.7); Neutrophils # 3.6 10*3/uL (1.4-7.4); Platelet Count 238 T/CUMM (130-400); Red Blood Count 3.09 MC/CUMM (3.8-5.5); Red Cell Distribution Width 15.1 % (9.3-17.3); White Blood Count 5.5 T/CUMM (4-12)
[2018-04-02 05:03] LABS: Albumin 3.3 G/DL (3.4-5.0); Bilirubin,Total 0.4 MG/DL (0.2-1.0); Calcium 8.5 MG/DL (8.5-10.1); Osmolality,Calculated 281.8 MOS/KG (273-304); Potassium 4.1 MMOL/L (3.5-5.1); Total Protein 7.5 G/DL (6.4-8.3)
[2018-04-02 05:05] LABS: Risk Ratio 2.2; VLDL CHOLESTEROL 16.4 MG/DL
[2018-04-03 04:38] LABS: Basophils # 0.1 10*3/uL (0.0-0.2); Eosinophils # 0.1 10*3/uL (0.0-0.87); Eosinophils % 1.9 % (0.00-10.9); Hematocrit 27.2 VOL% (42.0-52.0); Hemoglobin 8.7 GM/DL (14.0-18.0); Immature Granulocytes % 0.4 %; Immature Granulocytes Absolute 0.02 #; Lymphocytes # 0.6 10*3/uL (1.4-4.0); Lymphocytes % 13.2 % (21.2-54.2); Mean Corpuscular Hemoglobin 30 PG (27-34); Mean Corpuscular Volume 92.5 FL (87-102); Mean Platelet Volume 12.4 FL (9.6-12.0); Monocytes # 0.3 10*3/uL (0.11-0.8); Monocytes % 6.4 % (1.7-12.7); NRBC # 0.02 10*3/uL; Neutrophils # 3.7 10*3/uL (1.4-7.4); Neutrophils % 77.1 % (38.7-73.9); Platelet Count 226 T/CUMM (130-400); Red Blood Count 2.94 MC/CUMM (3.8-5.5); Red Cell Distribution Width 15.5 % (9.3-17.3); White Blood Count 4.9 T/CUMM (4-12)
[2018-04-03 04:56] LABS: Albumin 2.8 G/DL (3.4-5.0); Bilirubin,Total 0.6 MG/DL (0.2-1.0); Calcium 8.2 MG/DL (8.5-10.1); Potassium 5.1 MMOL/L (3.5-5.1); Total Protein 6.6 G/DL (6.4-8.3)
[2018-04-04 04:14] LABS: Basophils % 1.1 % (0.0-0.8); Eosinophils # 0.1 10*3/uL (0.0-0.87); Eosinophils % 1.9 % (0.00-10.9); Hematocrit 24.8 VOL% (42.0-52.0); Hemoglobin 7.7 GM/DL (14.0-18.0); Immature Granulocytes % 0.5 %; Immature Granulocytes Absolute 0.02 #; Lymphocytes % 25.5 % (21.2-54.2); Mean Corpuscular Hemoglobin 29 PG (27-34); Mean Corpuscular Volume 94.3 FL (87-102); Mean Platelet Volume 11.9 FL (9.6-12.0); Monocytes # 0.4 10*3/uL (0.11-0.8); Monocytes % 10.9 % (1.7-12.7); Neutrophils # 2.3 10*3/uL (1.4-7.4); Neutrophils % 60.1 % (38.7-73.9); Platelet Count 205 T/CUMM (130-400); Red Blood Count 2.63 MC/CUMM (3.8-5.5); Red Cell Distribution Width 15.4 % (9.3-17.3); White Blood Count 3.8 T/CUMM (4-12)
[2018-04-04 04:43] LABS: Albumin 2.8 G/DL (3.4-5.0); Bilirubin,Total 0.6 MG/DL (0.2-1.0); Calcium 8.3 MG/DL (8.5-10.1); Osmolality,Calculated 277.4 MOS/KG (273-304); Total Protein 6.3 G/DL (6.4-8.3)
[2018-04-04 05:38] LABS: Potassium 6.4 MMOL/L (3.5-5.1)
[2018-04-05 09:06] LABS: Basophils % 0.8 % (0.0-0.8); Eosinophils # 0.1 10*3/uL (0.0-0.87); Eosinophils % 1.9 % (0.00-10.9); Hematocrit 26.9 VOL% (42.0-52.0); Hemoglobin 8.7 GM/DL (14.0-18.0); Immature Granulocytes % 0.2 %; Immature Granulocytes Absolute 0.01 #; Lymphocytes # 0.8 10*3/uL (1.4-4.0); Lymphocytes % 16.2 % (21.2-54.2); Mean Corpuscular HGB Conc 32.3 GM/DL (32-36); Mean Corpuscular Hemoglobin 30 PG (27-34); Mean Corpuscular Volume 93.4 FL (87-102); Mean Platelet Volume 11.6 FL (9.6-12.0); Monocytes # 0.3 10*3/uL (0.11-0.8); Monocytes % 5.8 % (1.7-12.7); Neutrophils # 3.9 10*3/uL (1.4-7.4); Neutrophils % 75.1 % (38.7-73.9); Platelet Count 218 T/CUMM (130-400); Red Blood Count 2.88 MC/CUMM (3.8-5.5); Red Cell Distribution Width 15.4 % (9.3-17.3); White Blood Count 5.1 T/CUMM (4-12)
[2018-04-05 09:13] LABS: Calcium 8.5 MG/DL (8.5-10.1); Osmolality,Calculated 282.5 MOS/KG (273-304); Potassium 5.8 MMOL/L (3.5-5.1)
[2018-04-05 09:17] LABS: Calcium 8.3 MG/DL (8.5-10.1); Osmolality,Calculated 277.8 MOS/KG (273-304); Potassium 5.8 MMOL/L (3.5-5.1)
[2018-04-06 04:19] LABS: Calcium 8.5 MG/DL (8.5-10.1); Osmolality,Calculated 281.8 MOS/KG (273-304); Potassium 4.7 MMOL/L (3.5-5.1)
[2018-04-06 11:58] VITALS: BP 168/90
== END 2018-04-06 15:32 | disposition home health service (06) | DRG 175 ==
LOC: EDBD → EDUNIT# → N.ED 12:00 → SUATTDRO 15:01 → N.EDINP 15:01 → N.2W 16:17 → N.TELES 19:12
PROVIDERS: ADMIT Internal Medicine; ATTEND Internal Medicine
PROC: CLCCHCL (ICD-10-PCS; 2018-04-02 13:15)

== ENCOUNTER 2018-04-07 20:29 | Observation (INO) ==
[2018-04-07] MEDS ORDERED: ONDANSETRON 4 MG/2 ML VIAL IV STA (20:53)
[2018-04-07] MEDS ORDERED: NITROGLYCERIN 2% OINT 1 INCH/GM PACK TOP STA (20:53)
[2018-04-07] MEDS ORDERED: hydrALAZINE 20 MG/1 ML VIAL IV STA (20:55)
[2018-04-07 21:14] LABS: Basophils % 0.7 % (0.0-0.8); Eosinophils # 0.1 10*3/uL (0.0-0.87); Eosinophils % 1.4 % (0.00-10.9); Hematocrit 27.6 VOL% (42.0-52.0); Hemoglobin 8.9 GM/DL (14.0-18.0); Lymphocytes # 0.7 10*3/uL (1.4-4.0); Lymphocytes % 16.3 % (21.2-54.2); Mean Corpuscular HGB Conc 32.2 GM/DL (32-36); Mean Corpuscular Hemoglobin 30 PG (27-34); Mean Corpuscular Volume 91.7 FL (87-102); Mean Platelet Volume 10.9 FL (9.6-12.0); Monocytes # 0.5 10*3/uL (0.11-0.8); Monocytes % 11.3 % (1.7-12.7); Neutrophils % 70.3 % (38.7-73.9); Platelet Count 181 T/CUMM (130-400); Red Blood Count 3.01 MC/CUMM (3.8-5.5); Red Cell Distribution Width 14.9 % (9.3-17.3); White Blood Count 4.2 T/CUMM (4-12)
[2018-04-07 21:27] LABS: PT Patient Result 10.3 SECS; Partial Thromboplastin Time 29.8 SECS (0-40)
[2018-04-07] MEDS ORDERED: MEPERIDINE 50 MG/1 ML VIAL IV STA (21:27)
[2018-04-07] MEDS ORDERED: MEPERIDINE 25 MG/1 ML VIAL IV STA (21:32)
[2018-04-07 21:39] LABS: Alanine Aminotransferase 30 U/L (16-61); Albumin 3.3 G/DL (3.4-5.0); Alkaline Phosphatase 148 U/L (45-117); Aspartate Amino Transferase 22 U/L (0-37); Blood Urea Nitrogen 24 MG/DL (7-18); Calcium 8.4 MG/DL (8.5-10.1); Glucose 234 MG/DL (74-106); Osmolality,Calculated 284.8 MOS/KG (273-304); Potassium 3.7 MMOL/L (3.5-5.1); Sodium 137 MMOL/L (136-145); Total Protein 7.4 G/DL (6.4-8.3); Troponin I 0.016 NG/ML (0.00-0.045)
[2018-04-07] MEDS ORDERED: METOPROLOL TARTRATE 5 MG/5 ML VIAL IV STA (22:35)
[2018-04-07] MEDS ORDERED: cloNIDine 0.1 MG TABLET PO STA (23:40)
[2018-04-08] MEDS ORDERED: ONDANSETRON 4 MG/2 ML VIAL IV PRN (00:43)
[2018-04-08] MEDS ORDERED: DEXTROSE 50% 25 GM/50 ML VIAL IV PRN (00:43)
[2018-04-08] MEDS ORDERED: cloNIDine 0.1 MG TABLET PO PRN (00:43)
[2018-04-08] MEDS ORDERED: GLUCAGON 1 MG VIAL IM PRN (00:43)
[2018-04-08] MEDS ORDERED: SEVELAMER CARBONATE 800 MG TABLET PO PRN (00:43)
[2018-04-08] MEDS ORDERED: ACETAMINOPHEN 325 MG TABLET PO PRN (00:43)
[2018-04-08] MEDS ORDERED: ALBUTEROL/IPRATROPIUM 3 ML NEB RESP TX PRN (00:43)
[2018-04-08] MEDS: CARVEDILOL 25 MG TABLET PO SCH ×3 (01:07→16:33)
[2018-04-08] MEDS: MORPHINE 4 MG/1 ML VIAL IV PRN ×5 (01:07→20:09)
[2018-04-08] MEDS: levETIRAcetam 500 MG TABLET PO SCH ×3 (01:07→20:09)
[2018-04-08 03:00] LABS: Basophils % 0.4 % (0.0-0.8); Eosinophils % 0.6 % (0.00-10.9); Hematocrit 25.7 VOL% (42.0-52.0); Hemoglobin 8.3 GM/DL (14.0-18.0); Immature Granulocytes % 0.4 %; Immature Granulocytes Absolute 0.02 #; Lymphocytes # 0.6 10*3/uL (1.4-4.0); Mean Corpuscular HGB Conc 32.3 GM/DL (32-36); Mean Corpuscular Hemoglobin 29 PG (27-34); Mean Corpuscular Volume 90.2 FL (87-102); Monocytes # 0.3 10*3/uL (0.11-0.8); Neutrophils # 3.7 10*3/uL (1.4-7.4); Neutrophils % 78.6 % (38.7-73.9); Platelet Count 174 T/CUMM (130-400); Red Blood Count 2.85 MC/CUMM (3.8-5.5); Red Cell Distribution Width 14.8 % (9.3-17.3); White Blood Count 4.7 T/CUMM (4-12)
[2018-04-08 03:35] LABS: Calcium 8.3 MG/DL (8.5-10.1); Osmolality,Calculated 282.8 MOS/KG (273-304)
[2018-04-08] MEDS ORDERED: NITROGLYCERIN SL 0.4 MG TABLET SL PRN (03:46)
[2018-04-08] MEDS: SEVELAMER CARBONATE 800 MG TABLET PO SCH ×3 (07:31→16:33)
[2018-04-08] MEDS ORDERED: B COMPLEX WITH VITAMIN C PO SCH (09:00)
[2018-04-08] MEDS ORDERED: [UNRECOGNIZED DRUG - OTHER] PO SCH (09:00)
[2018-04-08] MEDS: ISOSORBIDE MONONITRATE 30 MG TABLET PO SCH (09:28)
[2018-04-08] MEDS: MULTIVITAMIN (BEROCCA) TABLET PO SCH (09:29)
[2018-04-08] MEDS: ASPIRIN EC 81 MG TABLET PO SCH (09:29)
[2018-04-08] MEDS: CLOPIDOGREL 75 MG TABLET PO SCH (09:29)
[2018-04-08] MEDS: PANTOPRAZOLE 40 MG TABLET PO SCH (09:29)
[2018-04-08] MEDS: LOSARTAN 50 MG TABLET PO SCH (09:29)
[2018-04-08] MEDS: FLUTICASONE 50 MCG NASAL SPRAY 16 GM BOTTLE BOTH NARES SCH ×2 (09:37→21:32)
[2018-04-08] MEDS ORDERED: BUTALBITAL/ACETAMIN/CAFFEINE 50-325-40 MG TABLET PO ONE (09:40)
[2018-04-08] MEDS: INSULIN LISPRO 100 UNIT/ML SUBCUT SCH ×2 (16:34→21:31)
[2018-04-09] MEDS: MORPHINE 4 MG/1 ML VIAL IV PRN ×3 (00:14→10:33)
[2018-04-09 05:10] LABS: Basophils # 0.1 10*3/uL (0.0-0.2); Basophils % 0.8 % (0.0-0.8); Eosinophils # 0.1 10*3/uL (0.0-0.87); Eosinophils % 2.4 % (0.00-10.9); Hematocrit 26.4 VOL% (42.0-52.0); Hemoglobin 8.5 GM/DL (14.0-18.0); Immature Granulocytes % 0.3 %; Immature Granulocytes Absolute 0.02 #; Lymphocytes # 0.8 10*3/uL (1.4-4.0); Lymphocytes % 12.7 % (21.2-54.2); Mean Corpuscular HGB Conc 32.2 GM/DL (32-36); Mean Corpuscular Hemoglobin 30 PG (27-34); Mean Platelet Volume 11.5 FL (9.6-12.0); Monocytes # 0.6 10*3/uL (0.11-0.8); Monocytes % 9.3 % (1.7-12.7); Neutrophils # 4.4 10*3/uL (1.4-7.4); Neutrophils % 74.5 % (38.7-73.9); Platelet Count 179 T/CUMM (130-400); Red Blood Count 2.87 MC/CUMM (3.8-5.5); Red Cell Distribution Width 14.5 % (9.3-17.3); White Blood Count 5.9 T/CUMM (4-12)
[2018-04-09 05:31] LABS: Calcium 7.8 MG/DL (8.5-10.1); Potassium 4.2 MMOL/L (3.5-5.1)
[2018-04-09] MEDS: levETIRAcetam 500 MG TABLET PO SCH (10:34)
[2018-04-09] MEDS: LOSARTAN 50 MG TABLET PO SCH (10:34)
[2018-04-09] MEDS: SEVELAMER CARBONATE 800 MG TABLET PO SCH ×3 (10:35→16:36)
[2018-04-09] MEDS: ASPIRIN EC 81 MG TABLET PO SCH (10:35)
[2018-04-09] MEDS: ISOSORBIDE MONONITRATE 30 MG TABLET PO SCH (10:36)
[2018-04-09] MEDS: MULTIVITAMIN (BEROCCA) TABLET PO SCH (10:36)
[2018-04-09] MEDS: CLOPIDOGREL 75 MG TABLET PO SCH (10:36)
[2018-04-09] MEDS: PANTOPRAZOLE 40 MG TABLET PO SCH (10:36)
[2018-04-09] MEDS: CARVEDILOL 25 MG TABLET PO SCH ×2 (10:36→16:37)
[2018-04-09] MEDS: FLUTICASONE 50 MCG NASAL SPRAY 16 GM BOTTLE BOTH NARES SCH (10:37)
[2018-04-09] MEDS: INSULIN LISPRO 100 UNIT/ML SUBCUT SCH ×2 (12:09→12:14)
[2018-04-09 16:32] VITALS: BP 156/92
== END 2018-04-09 18:40 | disposition home or self-care (01) ==
LOC: EDUNIT# → EDBD → N.ED 20:29 → N.EDINP 20:29 → N.TELES 04-08 00:26
PROVIDERS: ADMIT Internal Medicine; ATTEND Internal Medicine

== ENCOUNTER 2018-04-17 07:35 | Inpatient (IN) ==
[2018-04-17 10:15] LABS: Basophils # 0.1 10*3/uL (0.0-0.2); Basophils % 0.6 % (0.0-0.8); Eosinophils # 0.1 10*3/uL (0.0-0.87); Eosinophils % 0.8 % (0.00-10.9); Hemoglobin 7.5 GM/DL (14.0-18.0); Immature Granulocytes % 0.4 %; Immature Granulocytes Absolute 0.03 #; Lymphocytes # 0.8 10*3/uL (1.4-4.0); Lymphocytes % 9.6 % (21.2-54.2); Mean Corpuscular HGB Conc 32.6 GM/DL (32-36); Mean Corpuscular Hemoglobin 30 PG (27-34); Mean Corpuscular Volume 91.3 FL (87-102); Mean Platelet Volume 11.4 FL (9.6-12.0); Monocytes # 0.5 10*3/uL (0.11-0.8); Monocytes % 5.5 % (1.7-12.7); Neutrophils % 83.1 % (38.7-73.9); Platelet Count 196 T/CUMM (130-400); Red Blood Count 2.52 MC/CUMM (3.8-5.5); Red Cell Distribution Width 14.1 % (9.3-17.3); White Blood Count 8.4 T/CUMM (4-12)
[2018-04-17 10:23] LABS: PT Patient Result 10.8 SECS
[2018-04-17 10:45] LABS: Albumin 3.2 G/DL (3.4-5.0); Bilirubin,Total 0.4 MG/DL (0.2-1.0); Calcium 8.1 MG/DL (8.5-10.1); Osmolality,Calculated 289.5 MOS/KG (273-304); Potassium 3.6 MMOL/L (3.5-5.1); Thyroid Stimulating Hormone 2.71 uIU/ml (0.358-3.74)
[2018-04-17 11:36] LABS: ABG Base Excess 7.7 MMOL/L (-2.5-2.5); ABG HCO3 31.2 MMOL/L (20-26); ABG Oxygen Saturation 75.3 % (95-100); ABG PCO2 49.6 MM HG (35-48); ABG PH 7.431 (7.35-7.45); ABG PO2 42.7 MM HG (80-95); ABG TCO2 31.1 MMOL/L (23-27)
[2018-04-18 04:07] LABS: Risk Ratio 2.5; VLDL CHOLESTEROL 10.8 MG/DL
[2018-04-18 05:10] LABS: Troponin I 0.029 NG/ML (0.00-0.045)
[2018-04-18 09:15] LABS: Basophils # 0.1 10*3/uL (0.0-0.2); Basophils % 0.9 % (0.0-0.8); Eosinophils # 0.1 10*3/uL (0.0-0.87); Eosinophils % 2.2 % (0.00-10.9); Hematocrit 25.1 VOL% (42.0-52.0); Hemoglobin 8.1 GM/DL (14.0-18.0); Immature Granulocytes % 0.5 %; Immature Granulocytes Absolute 0.03 #; Lymphocytes # 1.1 10*3/uL (1.4-4.0); Mean Corpuscular HGB Conc 32.3 GM/DL (32-36); Mean Corpuscular Hemoglobin 29 PG (27-34); Mean Corpuscular Volume 90.9 FL (87-102); Mean Platelet Volume 12.1 FL (9.6-12.0); Monocytes # 0.4 10*3/uL (0.11-0.8); Monocytes % 6.7 % (1.7-12.7); Neutrophils # 4.7 10*3/uL (1.4-7.4); Neutrophils % 72.7 % (38.7-73.9); Platelet Count 214 T/CUMM (130-400); Red Blood Count 2.76 MC/CUMM (3.8-5.5); Red Cell Distribution Width 14.3 % (9.3-17.3); White Blood Count 6.4 T/CUMM (4-12)
[2018-04-18 09:29] LABS: Calcium 7.9 MG/DL (8.5-10.1); Osmolality,Calculated 283.2 MOS/KG (273-304); Potassium 4.1 MMOL/L (3.5-5.1)
[2018-04-19 04:05] LABS: Basophils % 0.1 % (0.0-0.8); Hematocrit 23.7 VOL% (42.0-52.0); Hemoglobin 7.6 GM/DL (14.0-18.0); Immature Granulocytes % 0.5 %; Immature Granulocytes Absolute 0.04 #; Lymphocytes # 0.3 10*3/uL (1.4-4.0); Lymphocytes % 3.3 % (21.2-54.2); Mean Corpuscular HGB Conc 32.1 GM/DL (32-36); Mean Corpuscular Hemoglobin 29 PG (27-34); Mean Corpuscular Volume 90.1 FL (87-102); Mean Platelet Volume 12.2 FL (9.6-12.0); Monocytes # 0.1 10*3/uL (0.11-0.8); Monocytes % 1.3 % (1.7-12.7); Neutrophils # 7.4 10*3/uL (1.4-7.4); Neutrophils % 94.8 % (38.7-73.9); Platelet Count 218 T/CUMM (130-400); Red Blood Count 2.63 MC/CUMM (3.8-5.5); Red Cell Distribution Width 14.3 % (9.3-17.3); White Blood Count 7.8 T/CUMM (4-12)
[2018-04-19 04:48] LABS: Calcium 7.7 MG/DL (8.5-10.1); Osmolality,Calculated 292.4 MOS/KG (273-304); Potassium 4.8 MMOL/L (3.5-5.1)
[2018-04-19 05:04] LABS: Hypochromasia 1+; Lymphocytes 1 % (20-55); Ovalocytes Slight; Platelet Estimate Adequate; Segmented Neutrophils 95 % (50-85); Total Cells Counted 100
[2018-04-21 13:13] VITALS: BP 152/92
== END 2018-04-21 14:18 | disposition home health service (06) | DRG 199 ==
LOC: N.CC 08:57 → SUATTDRO 08:57 → N.2E 04-19 23:18
PROVIDERS: ADMIT Internal Medicine; ATTEND Internal Medicine

== ENCOUNTER 2018-04-27 05:11 | Observation (INO) ==
[2018-04-27] MEDS ORDERED: MORPHINE 4 MG/1 ML VIAL IV STA (05:25)
[2018-04-27] MEDS ORDERED: ONDANSETRON 4 MG/2 ML VIAL IV STA (05:25)
[2018-04-27 05:36] LABS: Basophils % 0.5 % (0.0-0.8); Eosinophils # 0.1 10*3/uL (0.0-0.87); Hematocrit 23.4 VOL% (42.0-52.0); Hemoglobin 7.4 GM/DL (14.0-18.0); Immature Granulocytes % 0.5 %; Immature Granulocytes Absolute 0.03 #; Lymphocytes # 0.9 10*3/uL (1.4-4.0); Lymphocytes % 14.2 % (21.2-54.2); Mean Corpuscular HGB Conc 31.6 GM/DL (32-36); Mean Corpuscular Hemoglobin 30 PG (27-34); Mean Platelet Volume 10.6 FL (9.6-12.0); Monocytes # 0.7 10*3/uL (0.11-0.8); Monocytes % 10.4 % (1.7-12.7); NRBC # 0.02 10*3/uL; Neutrophils # 4.8 10*3/uL (1.4-7.4); Neutrophils % 72.4 % (38.7-73.9); Platelet Count 208 T/CUMM (130-400); Red Blood Count 2.49 MC/CUMM (3.8-5.5); White Blood Count 6.6 T/CUMM (4-12)
[2018-04-27 05:57] LABS: Albumin 3.4 G/DL (3.4-5.0); Bilirubin,Total 0.4 MG/DL (0.2-1.0); Calcium 7.6 MG/DL (8.5-10.1); Osmolality,Calculated 284.8 MOS/KG (273-304); Potassium 4.2 MMOL/L (3.5-5.1); Total Protein 7.9 G/DL (6.4-8.3)
[2018-04-27] MEDS ORDERED: POTASSIUM CHLORIDE 20 MEQ TABLET PO PRN (08:28)
[2018-04-27] MEDS ORDERED: MAGNESIUM SULF RIDER 4 GM in PREMIX 1 EACH IV PRN (08:28)
[2018-04-27] MEDS ORDERED: MAGNESIUM SULF RIDER 2 GM in PREMIX 1 EACH IV PRN (08:28)
[2018-04-27] MEDS ORDERED: GLUCAGON 1 MG VIAL IM PRN (08:28)
[2018-04-27] MEDS ORDERED: DEXTROSE 50% 25 GM/50 ML VIAL IV PRN (08:28)
[2018-04-27] MEDS: DICLOFENAC 1% GEL 100 GM TUBE TOP SCH ×3 (10:28→21:12)
[2018-04-27] MEDS ORDERED: ALBUTEROL/IPRATROPIUM 3 ML NEB RESP TX PRN (10:51)
[2018-04-27] MEDS ORDERED: SEVELAMER CARBONATE 800 MG TABLET PO SCH (11:00)
[2018-04-27] MEDS: INSULIN LISPRO 100 UNIT/ML SUBCUT SCH ×3 (11:26→21:17)
[2018-04-27] MEDS: SEVELAMER CARBONATE 800 MG TABLET PO SCH ×2 (11:44→17:34)
[2018-04-27] MEDS ORDERED: LACTULOSE 20 GM/30 ML UDCUP PO ONE (13:23)
[2018-04-27] MEDS ORDERED: BISACODYL 5 MG TABLET PO PRN (13:24)
[2018-04-27] MEDS: FUROSEMIDE 40 MG/4 ML VIAL IV SCH (15:07)
[2018-04-27] MEDS: DOCUSATE SODIUM 100 MG CAPSULE PO PRN (21:05)
[2018-04-27] MEDS: levETIRAcetam 500 MG TABLET PO SCH (21:06)
[2018-04-27] MEDS: CARVEDILOL 25 MG TABLET PO SCH (21:07)
[2018-04-27] MEDS: ISOSORBIDE MONONITRATE 30 MG TABLET PO SCH (21:07)
[2018-04-27] MEDS: LACTULOSE 20 GM/30 ML UDCUP PO PRN (21:07)
[2018-04-27] MEDS: INSULIN GLARGINE 100 UNIT/ML SUBCUT SCH (21:12)
[2018-04-28 03:57] LABS: Basophils % 0.4 % (0.0-0.8); Eosinophils # 0.1 10*3/uL (0.0-0.87); Eosinophils % 2.5 % (0.00-10.9); Hematocrit 21.7 VOL% (42.0-52.0); Hemoglobin 6.8 GM/DL (14.0-18.0); Immature Granulocytes % 0.7 %; Immature Granulocytes Absolute 0.03 #; Lymphocytes % 21.6 % (21.2-54.2); Mean Corpuscular HGB Conc 31.3 GM/DL (32-36); Mean Corpuscular Hemoglobin 30 PG (27-34); Mean Corpuscular Volume 94.3 FL (87-102); Mean Platelet Volume 11.4 FL (9.6-12.0); Monocytes # 0.4 10*3/uL (0.11-0.8); Monocytes % 9.4 % (1.7-12.7); NRBC # 0.02 10*3/uL; Neutrophils # 2.9 10*3/uL (1.4-7.4); Neutrophils % 65.4 % (38.7-73.9); Platelet Count 177 T/CUMM (130-400); Red Cell Distribution Width 17.7 % (9.3-17.3); White Blood Count 4.5 T/CUMM (4-12)
[2018-04-28 04:12] LABS: Calcium 7.7 MG/DL (8.5-10.1); Osmolality,Calculated 285.4 MOS/KG (273-304); Potassium 4.8 MMOL/L (3.5-5.1)
[2018-04-28] MEDS: FUROSEMIDE 40 MG/4 ML VIAL IV SCH ×2 (08:40→16:44)
[2018-04-28] MEDS: ASPIRIN EC 81 MG TABLET PO SCH (08:41)
[2018-04-28] MEDS: CARVEDILOL 25 MG TABLET PO SCH ×2 (08:41→20:45)
[2018-04-28] MEDS: LACTULOSE 20 GM/30 ML UDCUP PO PRN (08:41)
[2018-04-28] MEDS: ISOSORBIDE MONONITRATE 30 MG TABLET PO SCH ×2 (08:41→20:45)
[2018-04-28] MEDS: DOCUSATE SODIUM 100 MG CAPSULE PO PRN (08:42)
[2018-04-28] MEDS: LOSARTAN 50 MG TABLET PO SCH (08:42)
[2018-04-28] MEDS: SEVELAMER CARBONATE 800 MG TABLET PO SCH ×3 (08:42→16:34)
[2018-04-28] MEDS: levETIRAcetam 500 MG TABLET PO SCH ×2 (08:42→20:45)
[2018-04-28] MEDS: CLOPIDOGREL 75 MG TABLET PO SCH (08:43)
[2018-04-28] MEDS: DICLOFENAC 1% GEL 100 GM TUBE TOP SCH ×3 (08:43→22:44)
[2018-04-28] MEDS: INSULIN LISPRO 100 UNIT/ML SUBCUT SCH ×4 (08:43→22:25)
[2018-04-28] MEDS ORDERED: SODIUM CHLORIDE 0.9% 1,000 ML IV PRN (09:04)
[2018-04-28] MEDS ORDERED: diphenhydrAMINE CAP 25 MG CAPSULE PO PRN (09:04)
[2018-04-28] MEDS ORDERED: ACETAMINOPHEN 325 MG TABLET PO PRN (09:04)
[2018-04-28] MEDS: POLYETHYLENE GLYCOL POWDER 17 GM PACK PO SCH (15:07)
[2018-04-28] MEDS: INSULIN GLARGINE 100 UNIT/ML SUBCUT SCH (22:44)
[2018-04-29 05:36] LABS: Basophils % 0.7 % (0.0-0.8); Eosinophils # 0.1 10*3/uL (0.0-0.87); Hematocrit 29.1 VOL% (42.0-52.0); Immature Granulocytes % 0.5 %; Immature Granulocytes Absolute 0.03 #; Lymphocytes # 0.7 10*3/uL (1.4-4.0); Mean Corpuscular HGB Conc 32.6 GM/DL (32-36); Mean Corpuscular Hemoglobin 30 PG (27-34); Mean Corpuscular Volume 91.2 FL (87-102); Monocytes # 0.5 10*3/uL (0.11-0.8); Monocytes % 9.6 % (1.7-12.7); Neutrophils # 4.2 10*3/uL (1.4-7.4); Neutrophils % 74.2 % (38.7-73.9); Platelet Count 187 T/CUMM (130-400); White Blood Count 5.6 T/CUMM (4-12)
[2018-04-29 05:39] LABS: Hemoglobin 9.5 GM/DL (14.0-18.0); Red Blood Count 3.19 MC/CUMM (3.8-5.5)
[2018-04-29 05:52] LABS: Osmolality,Calculated 286.1 MOS/KG (273-304); Potassium 4.4 MMOL/L (3.5-5.1)
[2018-04-29 07:58] VITALS: BP 134/82
[2018-04-29] MEDS: SEVELAMER CARBONATE 800 MG TABLET PO SCH ×2 (10:41→12:03)
[2018-04-29] MEDS: ASPIRIN EC 81 MG TABLET PO SCH (10:41)
[2018-04-29] MEDS: INSULIN LISPRO 100 UNIT/ML SUBCUT SCH ×2 (10:41→12:03)
[2018-04-29] MEDS: ISOSORBIDE MONONITRATE 30 MG TABLET PO SCH (10:42)
[2018-04-29] MEDS: LOSARTAN 50 MG TABLET PO SCH (10:42)
[2018-04-29] MEDS: levETIRAcetam 500 MG TABLET PO SCH (10:42)
[2018-04-29] MEDS: CARVEDILOL 25 MG TABLET PO SCH (10:42)
[2018-04-29] MEDS: DICLOFENAC 1% GEL 100 GM TUBE TOP SCH (10:43)
[2018-04-29] MEDS: POLYETHYLENE GLYCOL POWDER 17 GM PACK PO SCH (10:43)
[2018-04-29] MEDS: CLOPIDOGREL 75 MG TABLET PO SCH (10:43)
[2018-04-29] MEDS: FUROSEMIDE 40 MG/4 ML VIAL IV SCH (10:44)
== END 2018-04-29 12:04 | disposition home or self-care (01) ==
LOC: EDUNIT# → SUATTDRO → EDBD → N.ED 05:11 → N.EDINP 05:11 → N.TELES 09:15
PROVIDERS: ADMIT Internal Medicine Geriatric Medicine; ATTEND Internal Medicine Geriatric Medicine

== ENCOUNTER 2018-06-20 00:11 | Observation (INO) ==
[2018-06-20] MEDS ORDERED: MORPHINE 4 MG/1 ML VIAL IV STA ×3 (00:39→03:12)
[2018-06-20] MEDS ORDERED: ONDANSETRON 4 MG/2 ML VIAL IV STA (00:39)
[2018-06-20 01:57] LABS: Basophils # 0.1 10*3/uL (0.0-0.2); Basophils % 0.7 % (0.0-0.8); Eosinophils # 0.2 10*3/uL (0.0-0.87); Eosinophils % 2.2 % (0.00-10.9); Hematocrit 33.1 VOL% (42.0-52.0); Hemoglobin 10.3 GM/DL (14.0-18.0); Immature Granulocytes % 0.4 %; Immature Granulocytes Absolute 0.03 #; Lymphocytes % 14.5 % (21.2-54.2); Mean Corpuscular HGB Conc 31.1 GM/DL (32-36); Mean Corpuscular Hemoglobin 28 PG (27-34); Mean Corpuscular Volume 90.9 FL (87-102); Mean Platelet Volume 12.3 FL (9.6-12.0); Monocytes # 0.4 10*3/uL (0.11-0.8); Monocytes % 5.4 % (1.7-12.7); Neutrophils # 5.3 10*3/uL (1.4-7.4); Neutrophils % 76.8 % (38.7-73.9); Platelet Count 247 T/CUMM (130-400); Red Blood Count 3.64 MC/CUMM (3.8-5.5); Red Cell Distribution Width 17.6 % (9.3-17.3); White Blood Count 6.9 T/CUMM (4-12)
[2018-06-20 02:10] LABS: PT Patient Result 10.3 SECS; Partial Thromboplastin Time 26.1 SECS (0-40)
[2018-06-20 02:14] LABS: Calcium 7.4 MG/DL (8.5-10.1); Osmolality,Calculated 277.8 MOS/KG (273-304)
[2018-06-20 02:22] LABS: Potassium 7.6 MMOL/L (3.5-5.1)
[2018-06-20] MEDS ORDERED: CALCIUM GLUCONATE 2,000 MG in SODIUM CHLORIDE 0.9% 100 ML IV ONE (02:23)
[2018-06-20] MEDS ORDERED: SODIUM BICARBONATE 50 MEQ/50 ML VIAL IV STA (02:23)
[2018-06-20] MEDS ORDERED: DEXTROSE 50% 25 GM/50 ML VIAL IV STA ×2 (02:24→03:17)
[2018-06-20] MEDS ORDERED: INSULIN REGULAR 100 UNIT/ML IV STA (02:24)
[2018-06-20] MEDS ORDERED: SODIUM BICARBONATE 50 MEQ/50 ML SYRINGE IV STA (03:16)
[2018-06-20 03:30] LABS: Eosinophils 1 % (0-10); Lymphocytes 15 % (20-55); Segmented Neutrophils 75 % (50-85); Total Cells Counted 100
[2018-06-20 03:31] LABS: Anisocytosis 1+; Hypochromasia 1+; Platelet Estimate Normal; Target Cells Few
[2018-06-20 06:47] LABS: Calcium 7.4 MG/DL (8.5-10.1)
[2018-06-20 07:08] LABS: Potassium 6.2 MMOL/L (3.5-5.1)
[2018-06-20] MEDS ORDERED: ACETAMINOPHEN 500 MG TABLET PO PRN (10:14)
[2018-06-20] MEDS ORDERED: SEVELAMER CARBONATE 800 MG TABLET PO SCH (10:15)
[2018-06-20] MEDS: guaiFENesin/DM ER 600-30 MG TABLET PO SCH ×2 (10:49→20:43)
[2018-06-20] MEDS: SEVELAMER CARBONATE 800 MG TABLET PO SCH ×3 (10:50→16:16)
[2018-06-20] MEDS: AMOXICILLIN/CLAV 875 MG TABLET PO SCH ×2 (10:50→22:52)
[2018-06-20] MEDS ORDERED: cefTRIAXone 1,000 MG in SYRINGE 1 EACH IV ONE (11:00)
[2018-06-20] MEDS ORDERED: ONDANSETRON 4 MG/2 ML VIAL IV PRN (12:57)
[2018-06-20] MEDS: ALBUTEROL/IPRATROPIUM 3 ML NEB RESP TX SCH ×2 (14:18→19:02)
[2018-06-20] MEDS: CARVEDILOL 25 MG TABLET PO SCH ×2 (16:16→18:40)
[2018-06-20] MEDS ORDERED: LOSARTAN 50 MG TABLET PO ONE (18:29)
[2018-06-20] MEDS: levETIRAcetam 500 MG TABLET PO SCH (20:43)
[2018-06-20] MEDS ORDERED: ATORVASTATIN 40 MG TABLET PO SCH (21:00)
[2018-06-20] MEDS ORDERED: INSULIN GLARGINE 100 UNIT/ML SUBCUT SCH (21:00)
[2018-06-21] MEDS: ALBUTEROL/IPRATROPIUM 3 ML NEB RESP TX SCH ×3 (00:25→13:26)
[2018-06-21 05:58] LABS: Calcium 7.8 MG/DL (8.5-10.1); Osmolality,Calculated 279.8 MOS/KG (273-304); Potassium 5.3 MMOL/L (3.5-5.1)
[2018-06-21] MEDS: SEVELAMER CARBONATE 800 MG TABLET PO SCH ×3 (08:19→17:24)
[2018-06-21] MEDS: levETIRAcetam 500 MG TABLET PO SCH (08:20)
[2018-06-21] MEDS: guaiFENesin/DM ER 600-30 MG TABLET PO SCH (08:23)
[2018-06-21] MEDS ORDERED: MULTIVITAMIN (BEROCCA) TABLET PO SCH (09:00)
[2018-06-21] MEDS ORDERED: ISOSORBIDE MONONITRATE 30 MG TABLET PO SCH (09:00)
[2018-06-21] MEDS ORDERED: CLOPIDOGREL 75 MG TABLET PO SCH (09:00)
[2018-06-21] MEDS ORDERED: LOSARTAN 50 MG TABLET PO SCH (09:00)
[2018-06-21] MEDS ORDERED: ASPIRIN EC 81 MG TABLET PO SCH (09:00)
[2018-06-21] MEDS: CARVEDILOL 25 MG TABLET PO SCH ×2 (09:05→17:23)
[2018-06-21 11:46] VITALS: BP 149/97
[2018-06-21] MEDS ORDERED: AMOXICILLIN/CLAV 500 MG TABLET PO SCH (18:00)
[2018-06-21] MEDS ORDERED: LOSARTAN 50 MG TABLET PO ONE (18:23)
== END 2018-06-21 16:42 | disposition home or self-care (01) ==
LOC: EDUNIT# → EDBD → N.ED 00:11 → N.EDINP 03:57 → INTOOBSV 03:57 → SUATTDRO 03:57 → N.5E 04:42
PROVIDERS: ADMIT Internal Medicine; ATTEND Family Medicine

== ENCOUNTER 2018-08-30 04:10 | Observation (INO) ==
[2018-08-30] MEDS ORDERED: ACETAMINOPHEN 325 MG TABLET PO PRN (07:56)
[2018-08-30] MEDS ORDERED: GLUCAGON 1 MG VIAL IM PRN (07:56)
[2018-08-30] MEDS ORDERED: PROMETHAZINE 25 MG/1 ML VIAL IM PRN (07:56)
[2018-08-30] MEDS ORDERED: DEXTROSE 50% 25 GM/50 ML VIAL IV PRN (07:56)
[2018-08-30] MEDS ORDERED: guaiFENesin/DM ER 600-30 MG TABLET PO PRN (07:57)
[2018-08-30] MEDS ORDERED: ALBUTEROL/IPRATROPIUM 3 ML NEB RESP TX PRN (07:57)
[2018-08-30] MEDS ORDERED: ACETAMINOPHEN 500 MG TABLET PO PRN (07:57)
[2018-08-30] MEDS ORDERED: LEVOFLOXACIN INJ 750 MG in PREMIX 1 EACH IV SCH (08:00)
[2018-08-30] MEDS ORDERED: SEVELAMER CARBONATE 800 MG TABLET PO SCH (08:00)
[2018-08-30] MEDS ORDERED: ALBUTEROL 2.5 MG/3 ML NEB RESP TX PRN (08:00)
[2018-08-30 08:19] LABS: Basophils % 0.4 % (0.0-0.8); Eosinophils # 0.1 10*3/uL (0.0-0.87); Eosinophils % 1.9 % (0.00-10.9); Hematocrit 28.6 VOL% (42.0-52.0); Hemoglobin 9.3 GM/DL (14.0-18.0); Immature Granulocytes % 0.7 %; Immature Granulocytes Absolute 0.05 #; Lymphocytes # 0.8 10*3/uL (1.4-4.0); Lymphocytes % 11.4 % (21.2-54.2); Mean Corpuscular HGB Conc 32.5 GM/DL (32-36); Mean Corpuscular Hemoglobin 28 PG (27-34); Mean Corpuscular Volume 87.2 FL (87-102); Mean Platelet Volume 11.6 FL (9.6-12.0); Monocytes # 0.4 10*3/uL (0.11-0.8); Neutrophils # 5.8 10*3/uL (1.4-7.4); Neutrophils % 79.6 % (38.7-73.9); Platelet Count 148 T/CUMM (130-400); Red Blood Count 3.28 MC/CUMM (3.8-5.5); Red Cell Distribution Width 16.1 % (9.3-17.3); White Blood Count 7.2 T/CUMM (4-12)
[2018-08-30 08:46] LABS: Albumin 3.7 G/DL (3.4-5.0); Osmolality,Calculated 283.5 MOS/KG (273-304); Potassium 5.4 MMOL/L (3.5-5.1); Thyroid Stimulating Hormone 1.3 uIU/ml (0.358-3.74); Total Protein 8.3 G/DL (6.4-8.3)
[2018-08-30 08:58] LABS: Calcium 5.7 MG/DL (8.5-10.1)
[2018-08-30] MEDS ORDERED: PIPERACILLIN/TAZOBACTAM 3,375 MG in SODIUM CHLORIDE 0.9% 100 ML IV SCH ×2 (09:00→16:00)
[2018-08-30] MEDS: INSULIN LISPRO 100 UNIT/ML SUBCUT SCH ×4 (09:59→23:39)
[2018-08-30] MEDS: CLOPIDOGREL 75 MG TABLET PO SCH (10:01)
[2018-08-30] MEDS: MULTIVITAMIN (BEROCCA) TABLET PO SCH (10:01)
[2018-08-30] MEDS: SEVELAMER CARBONATE 800 MG TABLET PO SCH ×3 (10:02→17:21)
[2018-08-30] MEDS: CARVEDILOL 25 MG TABLET PO SCH ×2 (10:02→21:32)
[2018-08-30] MEDS: levETIRAcetam 500 MG TABLET PO SCH ×2 (10:02→21:31)
[2018-08-30] MEDS: ISOSORBIDE MONONITRATE 30 MG TABLET PO SCH (10:02)
[2018-08-30] MEDS: ASPIRIN EC 81 MG TABLET PO SCH (10:03)
[2018-08-30] MEDS: PANTOPRAZOLE 40 MG TABLET PO SCH (10:03)
[2018-08-30] MEDS: LOSARTAN 50 MG TABLET PO SCH (12:58)
[2018-08-30] MEDS ORDERED: CALCIUM GLUCONATE 2,000 MG in SODIUM CHLORIDE 0.9% 100 ML IV ONE (13:39)
[2018-08-30] MEDS: ALBUTEROL/IPRATROPIUM 3 ML NEB RESP TX SCH ×2 (14:19→19:25)
[2018-08-30] MEDS ORDERED: INSULIN GLARGINE 100 UNIT/ML SUBCUT SCH ×2 (21:00)
[2018-08-30] MEDS ORDERED: hydrALAZINE 25 MG TABLET ONE (21:23)
[2018-08-31] MEDS: ALBUTEROL/IPRATROPIUM 3 ML NEB RESP TX SCH ×3 (00:57→13:19)
[2018-08-31 05:53] LABS: Risk Ratio 3.76
[2018-08-31] MEDS: INSULIN LISPRO 100 UNIT/ML SUBCUT SCH ×2 (07:30→14:25)
[2018-08-31] MEDS: SEVELAMER CARBONATE 800 MG TABLET PO SCH ×2 (10:20→12:00)
[2018-08-31] MEDS: PANTOPRAZOLE 40 MG TABLET PO SCH (10:20)
[2018-08-31] MEDS: CLOPIDOGREL 75 MG TABLET PO SCH (10:21)
[2018-08-31] MEDS: CARVEDILOL 25 MG TABLET PO SCH (10:21)
[2018-08-31] MEDS: ASPIRIN EC 81 MG TABLET PO SCH (10:21)
[2018-08-31] MEDS: MULTIVITAMIN (BEROCCA) TABLET PO SCH (10:21)
[2018-08-31] MEDS: levETIRAcetam 500 MG TABLET PO SCH (10:21)
[2018-08-31] MEDS: LOSARTAN 50 MG TABLET PO SCH (10:21)
[2018-08-31] MEDS: ISOSORBIDE MONONITRATE 30 MG TABLET PO SCH (10:22)
[2018-08-31 13:00] VITALS: BP 140/97
[2018-09-01] MEDS ORDERED: LEVOFLOXACIN INJ 500 MG in PREMIX 1 EACH IV SCH (10:00)
== END 2018-08-31 16:00 | disposition home or self-care (01) ==
LOC: INTOOBSV 07:06 → N.5E 07:06 → SUATTDRO 07:06
PROVIDERS: ADMIT Internal Medicine; ATTEND Internal Medicine

== ENCOUNTER 2018-09-05 15:29 | Observation (INO) ==
[2018-09-05] MEDS ORDERED: DEXTROSE 50% 25 GM/50 ML VIAL IV PRN (19:51)
[2018-09-05] MEDS ORDERED: guaiFENesin/DM ER 600-30 MG TABLET PO PRN (19:51)
[2018-09-05] MEDS ORDERED: ALBUTEROL/IPRATROPIUM 3 ML NEB RESP TX PRN (19:51)
[2018-09-05] MEDS ORDERED: ONDANSETRON 4 MG/2 ML VIAL IV PRN (19:51)
[2018-09-05] MEDS ORDERED: SEVELAMER CARBONATE 800 MG TABLET PO SCH (19:51)
[2018-09-05] MEDS ORDERED: ACETAMINOPHEN 325 MG TABLET PO PRN (19:51)
[2018-09-05] MEDS ORDERED: GLUCAGON 1 MG VIAL IM PRN (19:51)
[2018-09-05 20:23] LABS: Basophils % 0.2 % (0.0-0.8); Hematocrit 28.6 VOL% (42.0-52.0); Hemoglobin 8.9 GM/DL (14.0-18.0); Immature Granulocytes % 0.6 %; Immature Granulocytes Absolute 0.04 #; Lymphocytes # 0.6 10*3/uL (1.4-4.0); Lymphocytes % 8.7 % (21.2-54.2); Mean Corpuscular HGB Conc 31.1 GM/DL (32-36); Mean Corpuscular Hemoglobin 28 PG (27-34); Mean Corpuscular Volume 90.2 FL (87-102); Mean Platelet Volume 11.2 FL (9.6-12.0); Monocytes # 0.5 10*3/uL (0.11-0.8); Monocytes % 7.9 % (1.7-12.7); Neutrophils # 5.2 10*3/uL (1.4-7.4); Neutrophils % 82.6 % (38.7-73.9); Platelet Count 199 T/CUMM (130-400); Red Blood Count 3.17 MC/CUMM (3.8-5.5); Red Cell Distribution Width 17.4 % (9.3-17.3); White Blood Count 6.3 T/CUMM (4-12)
[2018-09-05 21:03] LABS: Alanine Aminotransferase 46 U/L (16-61); Albumin 3.6 G/DL (3.4-5.0); Alkaline Phosphatase 209 U/L (45-117); Aspartate Amino Transferase 23 U/L (0-37); Blood Urea Nitrogen 78 MG/DL (7-18); Calcium 7.3 MG/DL (8.5-10.1); Glucose 483 MG/DL (74-106); Osmolality,Calculated 292.6 MOS/KG (273-304); Sodium 124 MMOL/L (136-145); Thyroid Stimulating Hormone 0.287 uIU/ml (0.358-3.74); Total Protein 8.4 G/DL (6.4-8.3)
[2018-09-05] MEDS: levETIRAcetam 500 MG TABLET PO SCH (21:05)
[2018-09-05] MEDS: CARVEDILOL 25 MG TABLET PO SCH (21:05)
[2018-09-05] MEDS: PROMETHAZINE 25 MG TABLET PO SCH (21:05)
[2018-09-05] MEDS: AMITRIPTYLINE 10 MG TABLET PO SCH (21:05)
[2018-09-05] MEDS: INSULIN GLARGINE 100 UNIT/ML SUBCUT SCH (21:06)
[2018-09-05] MEDS: SODIUM CHLORIDE 0.9% 1,000 ML IV SCH (21:07)
[2018-09-05] MEDS: MORPHINE 4 MG/1 ML VIAL IV PRN (21:18)
[2018-09-05 21:19] LABS: Potassium 6.4 MMOL/L (3.5-5.1); Troponin I 0.047 NG/ML (0.00-0.045)
[2018-09-06] MEDS: INSULIN REGULAR 100 UNIT/ML SUBCUT SCH ×5 (01:11→20:59)
[2018-09-06] MEDS: AMITRIPTYLINE 10 MG TABLET PO SCH ×4 (01:11→20:58)
[2018-09-06] MEDS: PROMETHAZINE 25 MG TABLET PO SCH ×4 (01:11→20:58)
[2018-09-06] MEDS: MORPHINE 4 MG/1 ML VIAL IV PRN ×2 (01:22→06:51)
[2018-09-06] MEDS ORDERED: hydrALAZINE 20 MG/1 ML VIAL IV PRN (04:42)
[2018-09-06 05:24] LABS: Basophils % 0.2 % (0.0-0.8); Eosinophils % 0.3 % (0.00-10.9); Hematocrit 24.4 VOL% (42.0-52.0); Hemoglobin 7.6 GM/DL (14.0-18.0); Immature Granulocytes % 0.2 %; Immature Granulocytes Absolute 0.01 #; Lymphocytes # 1.3 10*3/uL (1.4-4.0); Lymphocytes % 20.7 % (21.2-54.2); Mean Corpuscular HGB Conc 31.1 GM/DL (32-36); Mean Corpuscular Hemoglobin 28 PG (27-34); Mean Corpuscular Volume 89.7 FL (87-102); Monocytes # 0.5 10*3/uL (0.11-0.8); Monocytes % 8.7 % (1.7-12.7); Neutrophils # 4.3 10*3/uL (1.4-7.4); Neutrophils % 69.9 % (38.7-73.9); Platelet Count 180 T/CUMM (130-400); Red Blood Count 2.72 MC/CUMM (3.8-5.5); Red Cell Distribution Width 17.4 % (9.3-17.3); White Blood Count 6.1 T/CUMM (4-12)
[2018-09-06 05:47] LABS: Alanine Aminotransferase 38 U/L (16-61); Alkaline Phosphatase 177 U/L (45-117); Aspartate Amino Transferase 20 U/L (0-37); Blood Urea Nitrogen 82 MG/DL (7-18); Calcium 6.9 MG/DL (8.5-10.1); Cholesterol 157 MG/DL (50-200); Glucose 152 MG/DL (74-106); HDL Cholesterol 40 MG/DL (40-60); Osmolality,Calculated 285.9 MOS/KG (273-304); Potassium 5.2 MMOL/L (3.5-5.1); Risk Ratio 3.93; Sodium 129 MMOL/L (136-145); Total Protein 7.3 G/DL (6.4-8.3); Triglycerides 153 MG/DL (2-150); VLDL CHOLESTEROL 30.6 MG/DL
[2018-09-06 05:51] LABS: Troponin I 0.073 NG/ML (0.00-0.045)
[2018-09-06] MEDS: CARVEDILOL 25 MG TABLET PO SCH ×2 (08:46→20:58)
[2018-09-06] MEDS: CLOPIDOGREL 75 MG TABLET PO SCH (08:46)
[2018-09-06] MEDS: LOSARTAN 50 MG TABLET PO SCH (08:46)
[2018-09-06] MEDS: PANTOPRAZOLE 40 MG TABLET PO SCH (08:46)
[2018-09-06] MEDS: levETIRAcetam 500 MG TABLET PO SCH ×2 (08:46→20:58)
[2018-09-06] MEDS: ASPIRIN EC 81 MG TABLET PO SCH (08:46)
[2018-09-06] MEDS: MULTIVITAMIN (BEROCCA) TABLET PO SCH (08:46)
[2018-09-06] MEDS: ISOSORBIDE MONONITRATE 30 MG TABLET PO SCH (08:46)
[2018-09-06] MEDS: SEVELAMER CARBONATE 800 MG TABLET PO SCH ×3 (08:46→16:00)
[2018-09-06] MEDS: predniSONE 20 MG TABLET PO SCH (08:46)
[2018-09-06] MEDS ORDERED: ENOXAPARIN 30 MG/0.3 ML SYRINGE SUBCUT SCH (09:00)
[2018-09-06] MEDS ORDERED: EPOETIN ALFA 10,000 UNIT/1 ML VIAL IV PRN (09:21)
[2018-09-06] MEDS: SODIUM CHLORIDE 0.9% 1,000 ML IV SCH (14:55)
[2018-09-06] MEDS ORDERED: HEPARIN 5,000 UNIT/1 ML VIAL SUBCUT SCH (16:00)
[2018-09-06 16:11] LABS: Free T4 (Free Thyroxine) 0.83 NG/DL (0.76-1.46)
[2018-09-06 18:22] LABS: Folate > 24.0 NG/ML (5.4-24.0); Vitamin B12 1433 PG/ML (211-911)
[2018-09-06] MEDS: INSULIN GLARGINE 100 UNIT/ML SUBCUT SCH (20:59)
[2018-09-07] MEDS: AMITRIPTYLINE 10 MG TABLET PO SCH ×3 (02:17→12:55)
[2018-09-07] MEDS: PROMETHAZINE 25 MG TABLET PO SCH ×3 (02:17→12:55)
[2018-09-07 04:57] LABS: Basophils % 0.8 % (0.0-0.8); Eosinophils # 0.1 10*3/uL (0.0-0.87); Eosinophils % 1.2 % (0.00-10.9); Hematocrit 28.2 VOL% (42.0-52.0); Hemoglobin 8.8 GM/DL (14.0-18.0); Immature Granulocytes % 0.6 %; Immature Granulocytes Absolute 0.03 #; Lymphocytes # 1.2 10*3/uL (1.4-4.0); Lymphocytes % 24.5 % (21.2-54.2); Mean Corpuscular HGB Conc 31.2 GM/DL (32-36); Mean Corpuscular Hemoglobin 28 PG (27-34); Mean Corpuscular Volume 90.4 FL (87-102); Monocytes # 0.5 10*3/uL (0.11-0.8); Monocytes % 8.9 % (1.7-12.7); Neutrophils # 3.2 10*3/uL (1.4-7.4); Platelet Count 200 T/CUMM (130-400); Red Blood Count 3.12 MC/CUMM (3.8-5.5); Red Cell Distribution Width 17.9 % (9.3-17.3); White Blood Count 5.1 T/CUMM (4-12)
[2018-09-07 05:22] LABS: Calcium 7.5 MG/DL (8.5-10.1); Potassium 5.3 MMOL/L (3.5-5.1)
[2018-09-07] MEDS: INSULIN REGULAR 100 UNIT/ML SUBCUT SCH ×3 (08:17→15:34)
[2018-09-07] MEDS: CARVEDILOL 25 MG TABLET PO SCH (08:18)
[2018-09-07] MEDS: PANTOPRAZOLE 40 MG TABLET PO SCH (08:18)
[2018-09-07] MEDS: LOSARTAN 50 MG TABLET PO SCH (08:18)
[2018-09-07] MEDS: ISOSORBIDE MONONITRATE 30 MG TABLET PO SCH (08:18)
[2018-09-07] MEDS: CLOPIDOGREL 75 MG TABLET PO SCH (08:18)
[2018-09-07] MEDS: MULTIVITAMIN (BEROCCA) TABLET PO SCH (08:18)
[2018-09-07] MEDS: levETIRAcetam 500 MG TABLET PO SCH (08:18)
[2018-09-07] MEDS: SEVELAMER CARBONATE 800 MG TABLET PO SCH ×2 (08:18→11:20)
[2018-09-07] MEDS: ASPIRIN EC 81 MG TABLET PO SCH (08:18)
[2018-09-07] MEDS: predniSONE 20 MG TABLET PO SCH (08:19)
[2018-09-07 12:08] VITALS: BP 118/75
== END 2018-09-07 16:16 | disposition home or self-care (01) ==
LOC: N.5E → INTOOBSV 17:01 → OBSVTOIN 17:01 → SUATTDRO 17:01
PROVIDERS: ADMIT Internal Medicine; ATTEND Internal Medicine

== ENCOUNTER 2018-12-20 17:51 | Inpatient (IN) ==
[2018-12-20] MEDS ORDERED: PANTOPRAZOLE 40 MG TABLET PO STA (18:43)
[2018-12-20] MEDS ORDERED: MAGNESIUM CITRATE 300 ML BOTTLE PO STA (18:43)
[2018-12-20] MEDS ORDERED: METOCLOPRAMIDE 10 MG TABLET PO STA (18:43)
[2018-12-20] MEDS ORDERED: DICYCLOMINE 20 MG/2 ML AMP IM ONE (18:43)
[2018-12-20] MEDS ORDERED: METOPROLOL TARTRATE 50 MG TABLET PO STA (19:38)
[2018-12-20] MEDS ORDERED: METOPROLOL TARTRATE 25 MG TABLET ONE (19:40)
[2018-12-20] MEDS ORDERED: AMPICILLIN/SULBACTAM 3,000 MG in SODIUM CHLORIDE 0.9% 100 ML IV STA (19:56)
[2018-12-20] MEDS ORDERED: ONDANSETRON 4 MG/2 ML VIAL IV PRN (20:04)
[2018-12-20] MEDS ORDERED: AMPICILLIN/SULBACTAM 3,000 MG VIAL ONE (20:16)
[2018-12-20 20:37] LABS: Basophils # 0.1 10*3/uL (0.0-0.2); Basophils % 0.8 % (0.0-0.8); Eosinophils # 0.1 10*3/uL (0.0-0.87); Eosinophils % 0.8 % (0.00-10.9); Hematocrit 30.6 VOL% (42.0-52.0); Hemoglobin 9.5 GM/DL (14.0-18.0); Immature Granulocytes % 0.5 %; Immature Granulocytes Absolute 0.03 #; Lymphocytes # 0.9 10*3/uL (1.4-4.0); Lymphocytes % 14.4 % (21.2-54.2); Mean Corpuscular Volume 93.6 FL (87-102); Mean Platelet Volume 12.2 FL (9.6-12.0); Monocytes % 8.2 % (1.7-12.7); Neutrophils % 75.3 % (38.7-73.9); Platelet Count 173 T/CUMM (130-400); Red Blood Count 3.27 MC/CUMM (3.8-5.5); Red Cell Distribution Width 15.4 % (9.3-17.3)
[2018-12-20 20:47] LABS: PT Patient Result 10.4 SECS
[2018-12-20 20:53] LABS: Alanine Aminotransferase 16 U/L (16-61); Alkaline Phosphatase 122 U/L (45-117); Amylase 39 U/L (25-115); Aspartate Amino Transferase 19 U/L (0-37); Bilirubin,Total < 0.39 MG/DL (0.2-1.0); Blood Urea Nitrogen 14 MG/DL (7-18); Calcium 9.6 MG/DL (8.5-10.1); Glucose 261 MG/DL (74-106); Osmolality,Calculated 279.1 MOS/KG (273-304); Total Protein 6.8 G/DL (6.4-8.3)
[2018-12-20] MEDS ORDERED: cloNIDine 0.1 MG TABLET PO STA (21:10)
[2018-12-20] MEDS ORDERED: cloNIDine 0.1 MG TABLET ONE (21:11)
[2018-12-20] MEDS ORDERED: fentaNYL 100 MCG/2 ML VIAL IV STA (21:16)
[2018-12-20] MEDS: METOPROLOL TARTRATE 5 MG/5 ML VIAL IV PRN (21:21)
[2018-12-20] MEDS ORDERED: SEVELAMER CARBONATE 800 MG TABLET PO SCH (22:45)
[2018-12-20] MEDS: AMITRIPTYLINE 10 MG TABLET PO SCH (23:47)
[2018-12-20] MEDS: NITROGLYCERIN 2% OINT 1 INCH/GM PACK TOP SCH (23:47)
[2018-12-20] MEDS: fentaNYL 100 MCG/2 ML VIAL IV PRN (23:48)
[2018-12-20] MEDS: INSULIN GLARGINE 100 UNIT/ML SUBCUT SCH (23:48)
[2018-12-20] MEDS: levETIRAcetam 500 MG TABLET PO SCH (23:48)
[2018-12-21] MEDS: METOPROLOL TARTRATE 5 MG/5 ML VIAL IV PRN ×2 (03:55→10:24)
[2018-12-21] MEDS: AMITRIPTYLINE 10 MG TABLET PO SCH ×4 (05:37→22:58)
[2018-12-21] MEDS: NITROGLYCERIN 2% OINT 1 INCH/GM PACK TOP SCH ×4 (05:37→23:04)
[2018-12-21] MEDS ORDERED: hydrALAZINE 20 MG/1 ML VIAL IV ONE ×2 (05:42→11:22)
[2018-12-21] MEDS: fentaNYL 100 MCG/2 ML VIAL IV PRN ×6 (06:05→22:54)
[2018-12-21] MEDS: MULTIVITAMIN (BEROCCA) TABLET PO SCH (08:07)
[2018-12-21] MEDS: levETIRAcetam 500 MG TABLET PO SCH ×2 (08:07→20:41)
[2018-12-21] MEDS: ISOSORBIDE DINITRATE 20 MG TABLET PO SCH (08:07)
[2018-12-21] MEDS: LACTULOSE 20 GM/30 ML UDCUP PO SCH (08:08)
[2018-12-21] MEDS: AMPICILLIN/SULBACTAM 3,000 MG in SODIUM CHLORIDE 0.9% 100 ML IV SCH (20:49)
[2018-12-21] MEDS: INSULIN GLARGINE 100 UNIT/ML SUBCUT SCH (22:26)
[2018-12-22] MEDS: fentaNYL 100 MCG/2 ML VIAL IV PRN ×3 (01:01→05:08)
[2018-12-22 04:53] LABS: Basophils % 0.6 % (0.0-0.8); Eosinophils # 0.1 10*3/uL (0.0-0.87); Eosinophils % 0.9 % (0.00-10.9); Hematocrit 31.7 VOL% (42.0-52.0); Hemoglobin 9.8 GM/DL (14.0-18.0); Immature Granulocytes % 0.9 %; Immature Granulocytes Absolute 0.06 #; Lymphocytes # 0.9 10*3/uL (1.4-4.0); Mean Corpuscular HGB Conc 30.9 GM/DL (32-36); Mean Corpuscular Volume 94.6 FL (87-102); Mean Platelet Volume 12.4 FL (9.6-12.0); Neutrophils % 75.6 % (38.7-73.9); Platelet Count 201 T/CUMM (130-400); Red Blood Count 3.35 MC/CUMM (3.8-5.5); Red Cell Distribution Width 16.3 % (9.3-17.3); White Blood Count 6.5 T/CUMM (4-12)
[2018-12-22] MEDS: hydrALAZINE 20 MG/1 ML VIAL IV PRN ×2 (04:58→14:11)
[2018-12-22] MEDS: NITROGLYCERIN 2% OINT 1 INCH/GM PACK TOP SCH ×2 (05:05→11:44)
[2018-12-22] MEDS: AMITRIPTYLINE 10 MG TABLET PO SCH ×3 (05:05→16:25)
[2018-12-22 05:21] LABS: Albumin 2.8 G/DL (3.4-5.0); Bilirubin,Total 0.7 MG/DL (0.2-1.0); Calcium 8.7 MG/DL (8.5-10.1); Osmolality,Calculated 277.8 MOS/KG (273-304); Total Protein 6.8 G/DL (6.4-8.3)
[2018-12-22] MEDS ORDERED: LIDOCAINE 1%/EPI INJ 20 ML VIAL ONE (06:41)
[2018-12-22] MEDS ORDERED: BUPIVACAINE 0.5% 50 ML VIAL ONE (06:41)
[2018-12-22] MEDS ORDERED: SODIUM CHLORIDE 0.9% 1,000 ML IV SCH (07:30)
[2018-12-22] MEDS ORDERED: PHENYLEPHRINE DRIP 20 MG/250 ML PREMIX IV ONE (08:55)
[2018-12-22] MEDS ORDERED: SEVOFLURANE 1 UNIT/15 MINUTE INH ONE (08:55)
[2018-12-22] MEDS ORDERED: PROPOFOL 200 MG/20 ML VIAL IV ONE (08:55)
[2018-12-22] MEDS ORDERED: METOPROLOL TARTRATE 5 MG/5 ML VIAL IV ONE (08:56)
[2018-12-22] MEDS ORDERED: GLYCOPYRROLATE 0.4 MG/2 ML VIAL ONE (08:56)
[2018-12-22] MEDS ORDERED: fentaNYL 100 MCG/2 ML VIAL ONE (08:56)
[2018-12-22] MEDS ORDERED: MIDAZOLAM 2 MG/2 ML VIAL ONE (08:56)
[2018-12-22] MEDS ORDERED: ONDANSETRON 4 MG/2 ML VIAL IV PRN (08:56)
[2018-12-22] MEDS ORDERED: ONDANSETRON 4 MG/2 ML VIAL ONE (08:56)
[2018-12-22] MEDS ORDERED: ROCURONIUM 100 MG/10 ML VIAL IV ONE (08:57)
[2018-12-22] MEDS ORDERED: NEOSTIGMINE 10 MG/10 ML VIAL ONE (08:57)
[2018-12-22] MEDS ORDERED: ALBUTEROL INHALER 8 GM INH ONE (08:57)
[2018-12-22] MEDS: HYDROmorphone 2 MG/1 ML VIAL IV PRN ×7 (09:00→22:27)
[2018-12-22] MEDS ORDERED: NEBIVOLOL 10 MG TABLET PO SCH ×3 (09:27→18:00)
[2018-12-22] MEDS ORDERED: hydrALAZINE 20 MG/1 ML VIAL IV ONE (09:32)
[2018-12-22] MEDS ORDERED: hydrALAZINE 20 MG/1 ML VIAL ONE (09:34)
[2018-12-22] MEDS: MINOXIDIL 2.5 MG TABLET PO SCH ×2 (10:24→16:55)
[2018-12-22] MEDS: MULTIVITAMIN (BEROCCA) TABLET PO SCH (11:43)
[2018-12-22] MEDS: ISOSORBIDE DINITRATE 20 MG TABLET PO SCH ×2 (11:44→14:07)
[2018-12-22] MEDS: LACTULOSE 20 GM/30 ML UDCUP PO SCH (11:44)
[2018-12-22] MEDS: levETIRAcetam 500 MG TABLET PO SCH ×2 (11:44→22:26)
[2018-12-22] MEDS ORDERED: HYDROmorphone 2 MG/1 ML VIAL ONE (14:04)
[2018-12-22] MEDS: CARVEDILOL 25 MG TABLET PO SCH ×2 (14:42→22:26)
[2018-12-22] MEDS ORDERED: ATORVASTATIN 40 MG TABLET PO SCH (21:00)
[2018-12-22] MEDS ORDERED: cloNIDine 0.1 MG TABLET PO SCH (21:00)
[2018-12-22] MEDS: cloNIDine 0.1 MG TABLET PO SCH (22:25)
[2018-12-22] MEDS: INSULIN GLARGINE 100 UNIT/ML SUBCUT SCH (22:26)
[2018-12-22] MEDS: AMPICILLIN/SULBACTAM 3,000 MG in SODIUM CHLORIDE 0.9% 100 ML IV SCH (22:34)
[2018-12-23] MEDS: AMITRIPTYLINE 10 MG TABLET PO SCH ×3 (00:30→12:21)
[2018-12-23] MEDS: HYDROmorphone 2 MG/1 ML VIAL IV PRN ×3 (03:36→12:20)
[2018-12-23 04:37] LABS: Basophils % 0.5 % (0.0-0.8); Eosinophils # 0.1 10*3/uL (0.0-0.87); Eosinophils % 1.6 % (0.00-10.9); Hematocrit 31.3 VOL% (42.0-52.0); Hemoglobin 9.6 GM/DL (14.0-18.0); Immature Granulocytes % 0.2 %; Immature Granulocytes Absolute 0.01 #; Lymphocytes # 0.7 10*3/uL (1.4-4.0); Lymphocytes % 12.8 % (21.2-54.2); Mean Corpuscular HGB Conc 30.7 GM/DL (32-36); Mean Corpuscular Volume 95.4 FL (87-102); Mean Platelet Volume 12.1 FL (9.6-12.0); Monocytes % 7.5 % (1.7-12.7); Neutrophils % 77.4 % (38.7-73.9); Platelet Count 195 T/CUMM (130-400); Red Blood Count 3.28 MC/CUMM (3.8-5.5); Red Cell Distribution Width 16.8 % (9.3-17.3); White Blood Count 5.5 T/CUMM (4-12)
[2018-12-23 05:27] LABS: Calcium 8.3 MG/DL (8.5-10.1); Osmolality,Calculated 273.2 MOS/KG (273-304)
[2018-12-23 05:38] LABS: Troponin I 0.069 NG/ML (0.00-0.045)
[2018-12-23] MEDS ORDERED: NEBIVOLOL 10 MG TABLET PO SCH (09:00)
[2018-12-23] MEDS: LACTULOSE 20 GM/30 ML UDCUP PO SCH (09:04)
[2018-12-23] MEDS: cloNIDine 0.1 MG TABLET PO SCH (09:05)
[2018-12-23] MEDS: MINOXIDIL 2.5 MG TABLET PO SCH (09:05)
[2018-12-23] MEDS: levETIRAcetam 500 MG TABLET PO SCH (09:06)
[2018-12-23] MEDS: MULTIVITAMIN (BEROCCA) TABLET PO SCH (09:06)
[2018-12-23] MEDS: ISOSORBIDE DINITRATE 20 MG TABLET PO SCH (09:06)
[2018-12-23] MEDS ORDERED: GLUCAGON 1 MG VIAL IM PRN (10:57)
[2018-12-23] MEDS ORDERED: DEXTROSE 50% 25 GM/50 ML SYRINGE IV PRN (10:57)
[2018-12-23 11:20] VITALS: BP 109/74
== END 2018-12-23 15:09 | disposition home or self-care (01) | DRG 234 ==
LOC: N.ED 17:51 → N.EDINP 20:03 → N.3E 21:45
PROVIDERS: ADMIT Surgery; ATTEND Surgery

== ENCOUNTER 2019-12-17 11:02 | Inpatient (IN) ==
[2019-12-17] MEDS ORDERED: ONDANSETRON 4 MG/2 ML VIAL IV STA (11:44)
[2019-12-17] MEDS ORDERED: PANTOPRAZOLE 40 MG VIAL IV STA (11:44)
[2019-12-17] MEDS ORDERED: AZITHROMYCIN INJ 500 MG in SODIUM CHLORIDE 0.9% 250 ML IV STA (11:44)
[2019-12-17 13:17] LABS: Basophils % 0.1 % (0.0-0.8); Eosinophils % 0.1 % (0.00-10.9); Hematocrit 28.3 VOL% (42.0-52.0); Immature Granulocytes % 1.6 %; Immature Granulocytes Absolute 0.11 #; Lymphocytes # 0.6 10*3/uL (1.4-4.0); Lymphocytes % 9.4 % (21.2-54.2); Mean Corpuscular HGB Conc 31.8 GM/DL (32-36); Mean Corpuscular Volume 98.6 FL (87-102); Mean Platelet Volume 11.9 FL (9.6-12.0); Monocytes % 1.3 % (1.7-12.7); NRBC # 0.08 10*3/uL; Neutrophils % 87.5 % (38.7-73.9); Platelet Count 140 T/CUMM (130-400); Red Blood Count 2.87 MC/CUMM (3.8-5.5); Red Cell Distribution Width 13.7 % (9.3-17.3); White Blood Count 6.7 T/CUMM (4-12)
[2019-12-17 13:37] LABS: PT Patient Result 11.2 SECS (9.8-11.9); Partial Thromboplastin Time 36.7 SECS (23.9-33.8)
[2019-12-17 14:50] LABS: Band Neutrophils 3 % (0-10); Hypochromasia Slight; Lymphocytes 11 % (20-55); Microcytosis Slight; Nucleated Red Blood Cells 3 (0-5); Platelet Estimate Adequate; Polychromasia Slight; Segmented Neutrophils 84 % (50-85); Total Cells Counted 100
[2019-12-17 15:00] LABS: Alanine Aminotransferase 29 U/L (16-61); Albumin 2.5 G/DL (3.4-5.0); Alkaline Phosphatase 172 U/L (45-117); Aspartate Amino Transferase 59 U/L (0-37); Blood Urea Nitrogen 45 MG/DL (7-18); Calcium 8.6 MG/DL (8.5-10.1); Estimated Glom Filtration Rate 13 ML/MIN; Total Protein 7.6 G/DL (6.4-8.3)
[2019-12-17 15:01] LABS: Osmolality,Calculated 294.4 MOS/KG (273-304)
[2019-12-17 15:02] LABS: Ferritin 36192.6 ng/ml (26-388)
[2019-12-17 15:03] LABS: Amylase 40 U/L (25-115)
[2019-12-17 15:05] LABS: Glucose 638 MG/DL (74-106)
[2019-12-17 15:16] LABS: Troponin I 0.077 NG/ML (0.00-0.045)
[2019-12-17] MEDS ORDERED: INSULIN REGULAR 100 UNIT/ML IV ONE (15:35)
[2019-12-17] MEDS ORDERED: DEXTROSE 10% 250 ML BAG IV PRN ×2 (16:05→17:19)
[2019-12-17] MEDS ORDERED: GLUCAGON 1 MG VIAL IM PRN (16:05)
[2019-12-17] MEDS ORDERED: ONDANSETRON 4 MG/2 ML VIAL IV PRN (16:05)
[2019-12-17 17:35] LABS: Allen Test Positive
[2019-12-17 17:41] LABS: ABG Base Excess 2.4 MMOL/L (-2.5-2.5); ABG HCO3 26.3 MMOL/L (20-26); ABG Oxygen Saturation 83.6 % (95-100); ABG PCO2 52.2 MM HG (35-48); ABG PH 7.349 (7.35-7.45); ABG PO2 54.5 MM HG (80-95); ABG TCO2 26.6 MMOL/L (23-27)
[2019-12-17] MEDS ORDERED: VANCOMYCIN INJ 1,500 MG in SODIUM CHLORIDE 0.9% 500 ML IV ONE (20:00)
[2019-12-17] MEDS: DOCUSATE SODIUM 100 MG CAPSULE PO SCH (22:25)
[2019-12-17] MEDS: ZINC SULFATE 220 MG CAPSULE PO SCH (22:25)
[2019-12-17] MEDS: INSULIN REGULAR 100 UNIT/ML SUBCUT SCH (23:06)
[2019-12-18 06:16] LABS: Basophils % 0.2 % (0.0-0.8); Eosinophils % 0.4 % (0.00-10.9); Hematocrit 29.2 VOL% (42.0-52.0); Hemoglobin 9.4 GM/DL (14.0-18.0); Immature Granulocytes % 2.3 %; Immature Granulocytes Absolute 0.12 #; Lymphocytes # 0.7 10*3/uL (1.4-4.0); Lymphocytes % 12.6 % (21.2-54.2); Mean Corpuscular HGB Conc 32.2 GM/DL (32-36); Mean Platelet Volume 12.1 FL (9.6-12.0); Monocytes % 1.7 % (1.7-12.7); NRBC # 0.05 10*3/uL; Neutrophils % 82.8 % (38.7-73.9); Platelet Count 136 T/CUMM (130-400); Red Blood Count 3.01 MC/CUMM (3.8-5.5); Red Cell Distribution Width 13.5 % (9.3-17.3); White Blood Count 5.3 T/CUMM (4-12)
[2019-12-18 06:44] LABS: Albumin 2.2 G/DL (3.4-5.0); Bilirubin,Total 0.6 MG/DL (0.2-1.0); Calcium 8.1 MG/DL (8.5-10.1); Osmolality,Calculated 284.8 MOS/KG (273-304); Risk Ratio 3.94; Thyroid Stimulating Hormone 2.16 uIU/ml (0.358-3.74); Total Protein 6.9 G/DL (6.4-8.3)
[2019-12-18 07:45] LABS: Band Neutrophils 6 % (0-10); Lymphocytes 14 % (20-55); Nucleated Red Blood Cells 1 (0-5); Platelet Estimate Adequate; Segmented Neutrophils 80 % (50-85); Total Cells Counted 100
[2019-12-18 07:47] LABS: Anisocytosis 1+; Macrocytosis 1+; Target Cells Few
[2019-12-18] MEDS: INSULIN REGULAR 100 UNIT/ML SUBCUT SCH ×4 (09:52→23:15)
[2019-12-18] MEDS: POLYETHYLENE GLYCOL POWDER 17 GM PACK PO SCH (09:53)
[2019-12-18] MEDS: DOCUSATE SODIUM 100 MG CAPSULE PO SCH ×2 (09:53→23:17)
[2019-12-18] MEDS: ACETAMINOPHEN 325 MG TABLET PO PRN ×2 (09:56→12:22)
[2019-12-18] MEDS: cefTRIAXone 1,000 MG in SYRINGE 1 EACH IV SCH (12:29)
[2019-12-18] MEDS ORDERED: VANCOMYCIN INJ 500 MG in SODIUM CHLORIDE 0.9% 250 ML IV PRN (17:00)
[2019-12-18] MEDS: INSULIN GLARGINE 100 UNIT/ML SUBCUT SCH (23:15)
[2019-12-19 07:12] LABS: Basophils % 0.2 % (0.0-0.8); Eosinophils % 0.1 % (0.00-10.9); Hematocrit 27.7 VOL% (42.0-52.0); Immature Granulocytes % 1.1 %; Lymphocytes # 0.8 10*3/uL (1.4-4.0); Lymphocytes % 9.5 % (21.2-54.2); Mean Corpuscular HGB Conc 32.5 GM/DL (32-36); Mean Corpuscular Volume 95.5 FL (87-102); Mean Platelet Volume 12.2 FL (9.6-12.0); Monocytes % 1.1 % (1.7-12.7); NRBC # 0.05 10*3/uL; Platelet Count 123 T/CUMM (130-400); White Blood Count 8.8 T/CUMM (4-12)
[2019-12-19 07:27] LABS: Albumin 2.1 G/DL (3.4-5.0); Bilirubin,Total 0.7 MG/DL (0.2-1.0); Calcium 7.9 MG/DL (8.5-10.1); Osmolality,Calculated 280.5 MOS/KG (273-304); Total Protein 6.5 G/DL (6.4-8.3)
[2019-12-19 07:45] LABS: Anisocytosis 1+; Band Neutrophils 11 % (0-10); Eosinophils 1 % (0-10); Hypochromasia Slight; Lymphocytes 5 % (20-55); Macrocytosis 1+; Nucleated Red Blood Cells 2 (0-5); Platelet Estimate Adequate; Segmented Neutrophils 83 % (50-85); Target Cells Few; Total Cells Counted 100
[2019-12-19 07:46] LABS: Polychromasia Slight
[2019-12-19] MEDS: INSULIN REGULAR 100 UNIT/ML SUBCUT SCH ×4 (08:38→22:13)
[2019-12-19] MEDS: ZINC SULFATE 220 MG CAPSULE PO SCH (09:34)
[2019-12-19] MEDS: DOCUSATE SODIUM 100 MG CAPSULE PO SCH ×2 (09:34→22:12)
[2019-12-19] MEDS: POLYETHYLENE GLYCOL POWDER 17 GM PACK PO SCH (09:34)
[2019-12-19] MEDS: cefTRIAXone 1,000 MG in SYRINGE 1 EACH IV SCH (09:35)
[2019-12-19 13:00] LABS: Hepatitis B Core IgM Quant 0.08 Index; Hepatitis B Surface Ag Quant 0.32 Index; Hepatitis B Surface Ag Result Negative (Negative); Hepatitis C Virus Ab Quant 0.11 Index; Hepatitis C Virus Ab Result Negative (Negative)
[2019-12-19] MEDS ORDERED: HEPARIN 5,000 UNIT/1 ML VIAL SUBCUT SCH (13:30)
[2019-12-19] MEDS: HEPARIN 5,000 UNIT/1 ML VIAL SUBCUT SCH (17:03)
[2019-12-19] MEDS: INSULIN GLARGINE 100 UNIT/ML SUBCUT SCH (22:13)
[2019-12-19] MEDS: ACETAMINOPHEN 325 MG TABLET PO PRN (22:14)
[2019-12-20] MEDS: HEPARIN 5,000 UNIT/1 ML VIAL SUBCUT SCH ×2 (03:00→15:55)
[2019-12-20 06:58] LABS: Basophils % 0.1 % (0.0-0.8); Eosinophils % 0.3 % (0.00-10.9); Hematocrit 24.4 VOL% (42.0-52.0); Hemoglobin 8.1 GM/DL (14.0-18.0); Immature Granulocytes % 1.1 %; Immature Granulocytes Absolute 0.08 #; Lymphocytes # 0.4 10*3/uL (1.4-4.0); Lymphocytes % 5.5 % (21.2-54.2); Mean Corpuscular HGB Conc 33.2 GM/DL (32-36); Mean Corpuscular Volume 94.6 FL (87-102); Mean Platelet Volume 12.3 FL (9.6-12.0); Monocytes % 1.2 % (1.7-12.7); Neutrophils % 91.8 % (38.7-73.9); Platelet Count 100 T/CUMM (130-400); Red Blood Count 2.58 MC/CUMM (3.8-5.5); Red Cell Distribution Width 14.1 % (9.3-17.3); White Blood Count 7.5 T/CUMM (4-12)
[2019-12-20 07:21] LABS: Calcium 7.9 MG/DL (8.5-10.1); Osmolality,Calculated 281.4 MOS/KG (273-304)
[2019-12-20 07:24] LABS: Albumin 2.1 G/DL (3.4-5.0); Calcium 7.6 MG/DL (8.5-10.1); Osmolality,Calculated 284.2 MOS/KG (273-304); Total Protein 5.9 G/DL (6.4-8.3)
[2019-12-20 07:26] LABS: Band Neutrophils 1 % (0-10); Eosinophils 1 % (0-10); Lymphocytes 8 % (20-55); Platelet Estimate Adequate; Segmented Neutrophils 90 % (50-85); Total Cells Counted 100
[2019-12-20 07:27] LABS: Anisocytosis Slight; Hypochromasia 1+; Macrocytosis 1+
[2019-12-20] MEDS: INSULIN REGULAR 100 UNIT/ML SUBCUT SCH ×4 (08:36→22:05)
[2019-12-20] MEDS: POLYETHYLENE GLYCOL POWDER 17 GM PACK PO SCH (09:48)
[2019-12-20] MEDS: cefTRIAXone 1,000 MG in SYRINGE 1 EACH IV SCH (09:48)
[2019-12-20] MEDS: DOCUSATE SODIUM 100 MG CAPSULE PO SCH ×2 (09:48→22:04)
[2019-12-20] MEDS ORDERED: MAGNESIUM HYDROXIDE SUSP 30 ML UDCUP PO PRN (11:29)
[2019-12-20] MEDS ORDERED: MAGNESIUM HYDROXIDE SUSP 30 ML UDCUP PO ONE (11:32)
[2019-12-20] MEDS ORDERED: clonazePAM 0.5 MG TABLET PO SCH (21:00)
[2019-12-20] MEDS ORDERED: carvediloL 25 MG TABLET PO SCH (21:00)
[2019-12-20] MEDS: INSULIN GLARGINE 100 UNIT/ML SUBCUT SCH (22:06)
[2019-12-21 02:16] VITALS: BP 105/56
[2019-12-21] MEDS ORDERED: ROCURONIUM 100 MG/10 ML VIAL IV ONE (03:38)
[2019-12-21] MEDS ORDERED: NOREPINEPHRINE 4 MG/4 ML VIAL IV ONE (03:45)
[2019-12-21] MEDS ORDERED: NOREPINEPHRINE 8 MG in SODIUM CHLORIDE 0.9% 242 ML IV PRN (03:50)
[2019-12-21] MEDS ORDERED: SODIUM CHLORIDE 0.9% 1,000 ML IV ONE (03:56)
[2019-12-21] MEDS ORDERED: EPINEPHrine 1 MG/10 ML SYRINGE IV ONE ×3 (04:00→04:18)
[2019-12-21] MEDS ORDERED: ATROPINE 1 MG/10 ML SYRINGE IV ONE (04:07)
[2019-12-21] MEDS ORDERED: SODIUM BICARBONATE 50 MEQ/50 ML SYRINGE IV ONE (04:19)
[2019-12-21] MEDS ORDERED: EPINEPHrine 1 MG/10 ML SYRINGE ONE (04:19)
[2019-12-21] MEDS: HEPARIN 5,000 UNIT/1 ML VIAL SUBCUT SCH (04:35)
[2019-12-21] MEDS ORDERED: LOSARTAN 50 MG TABLET PO SCH (09:00)
[2019-12-21] MEDS ORDERED: levETIRAcetam 250 MG TABLET PO SCH (09:00)
[2019-12-21] MEDS ORDERED: CLOPIDOGREL 75 MG TABLET PO SCH (09:00)
[2019-12-21] MEDS ORDERED: ASPIRIN EC 81 MG TABLET PO SCH (09:00)
[2019-12-23] MEDS ORDERED: ESCITALOPRAM 10 MG TABLET PO SCH (09:00)
== END 2019-12-21 04:43 | disposition expired | DRG 137 ==
LOC: EDBD → EDUNIT# → N.ED 11:02 → SUATTDRO 16:02 → N.EDINP 16:02 → N.2E 18:55 → N.CC 12-21 03:36
PROVIDERS: ADMIT Family Medicine; ATTEND Internal Medicine